=== PATIENT | female | born 1955 | race Caucasian/White ===

== ENCOUNTER 2018-03-31 18:02 | Inpatient (IN) | payer OTHER ==
[~2018-03-31] VITALS: Ht 162.5 cm; Wt 83.9 kg
--- NOTE | ~2018-03-31 | PR ---
[place], [place] PROGRESS NOTE NAME: HOWARD ENGLISH UNIT #: [id number] ROOM: 315 DOCTOR: ANTONIETA CHILDRESS MD BIRTHDATE: [birth year] DOS: 04/02/2018 CHIEF COMPLAINT: "Somebody killed my cat." SUMMARY OF THE VISIT: The patient was interviewed as she was engaging in conversation with one of the nurses. She looked extremely preoccupied and seemed to be responding to unforeseen others and not attending to the conversation at hand. She looked right passed me rather than looking me in the eye and it took multiple questions to even get her to state to me that she was upset because somebody killed her cat. When I tried to engage her into more reality and suggested that we attempt to find out if this is actually true, she did not speak to me further. Nurses report very consistent behavior today that she is much more fragmented and does seem to be having significant processing difficulty. MENTAL STATUS: She is alert and oriented to self at least, it is unclear if she is to place or time. Mood does seem to be very depressed and she is flat, blunted and constricted with significant processing difficulty and sparsity of thought. She does still seem to be grossly psychotic. PLAN: At this point, I will add Trintellix 10 mg in the morning to see if she is compliant with that. We will attempt to get her to take the Invega Sustenna injection of 234 mg IM, engage her in individual and mallory milieu activity, returning then to the least restrictive environment when psychiatrically stable. ANTONIETA CHILDRESS MD CM:PNTRANS [phone] ANTONIETA CHILDRESS MD 04/03/18 0110 interface
--- NOTE | ~2018-03-31 | CON ---
[place], [place] REPORT OF CONSULTATION NAME: HOWARD ENGLISH UNIT #: [id number] ROOM: 315 DOCTOR: GEOVANNA WHYTE DPM BIRTHDATE: [birth year] DOS: 04/03/2018 SUBJECTIVE: This 63-year-old female is seen today for care of extremely long toenails. It has been quite some time that she has had her nails cut. PAST MEDICAL HISTORY: Positive for hyperlipidemia, hypothyroidism, Hypothyroidism, vitamin D deficiency, schizophrenia. ALLERGIES: FLAGYL. CURRENT MEDICATIONS: Include Trintellix, Zocor, Risperdal, vitamin D, Synthroid, Geodon and Ativan. OBJECTIVE: Upon lower extremity physical examination, pedal pulses are palpable. Skin temperature is warm. CFT is less than 2 seconds to all digits. Upon neuro exam, sensation appears grossly intact and symmetrical. Muscle strength does appear full without any deficits. There is some contracture of lesser digits noted with prominent metatarsal heads. No pain noted to palpation on range of motion of pedal joints. Nails 1 through 5 bilaterally are extremely elongated, discolored, thick, brittle and dystrophic. The great toenails are mildly incurvated. No signs of infection. There was tenderness noted to palpation to the toenails. ASSESSMENT: Onychomycosis 1 through 5 bilaterally with pain. PLAN: Consult is performed. Manual debridement of mycotic nails 1 through 5 bilaterally in length and thickness to the level of the nail bed to reduce such infection. Follow up in 9 weeks as an outpatient for palliative foot care. Thank you for the opportunity to take part in care of this patient. GEOVANNA WHYTE DPM CM:CONSTR:REPORT OF CONSULTATION 1207 04/03/18 5 interface
--- NOTE | ~2018-03-31 | PR ---
[place], [place] PROGRESS NOTE NAME: HOWARD ENGLISH UNIT #: [id number] ROOM: 315 DOCTOR: ANNMARIE BROWN DO BIRTHDATE: [birth year] DOS: 04/04/2018 CHIEF COMPLAINT: "Feel a bit better." SUMMARY OF THE VISIT: The patient was interviewed in the dining garvey as she was sitting in a Chelita chair. Per nursing, rapid response was called overnight for seizure activity. The patient experienced [address] was negative. EKG was negative and troponin levels were negative. Nursing says based on past records, she has not had a seizure since she was 18 years old and that the Depakote medication that the patient was on, was used initially as a mood stabilizer. During patient's seizures, the patient was given valproate, a bolus of normal saline 500 mg and Ativan IV. The patient attempted to engage in conversation while speaking to her, but after saying I feel a bit better, patient was unable to vocalize normal communication and was mumbling words and making incomprehensible sounds. MENTAL STATUS EXAMINATION: The patient is alert and oriented to self, difficult to determine whether she is alert and oriented to time and place. Memory is difficult to test because of her nonverbal status at this time. PLAN: 1. Invega suspension 234 mg at bedtime. 2. We will continue to engage the patient in individual and mallory milieu activity, returning to the least restrictive environment when psychiatrically stable. Discharge will depend on medical and psychiatric status at that time. ADDENDUM Dr. Childress 04/13/18 10:48 am: Above note reviewed. Agree with observations, recommendations, and overall treatment plan. Annmarie Brown DO [place], [place] PROGRESS NOTE NAME: HOWARD ENGLISH UNIT #: [id number] ROOM: 315 DOCTOR: ANNMARIE BROWN DO BIRTHDATE: [birth year] ANTONIETA CHILDRESS MD CM:PNTRANS [phone] ANNMARIE BROWN 04/13/18 1055 MYRON NO.LLR
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
--- NOTE | ~2018-03-31 | PR ---
[place], [place] PROGRESS NOTE NAME: HOWARD ENGLISH UNIT #: [id number] ROOM: 315 DOCTOR: ANNMARIE BROWN DO BIRTHDATE: [birth year] DOS: 04/05/2018 CHIEF COMPLAINT: The patient is nonverbal at this time. SUMMARY OF VISIT: This is a 63-year-old female interviewed in the hallway in the Chelita chair. The patient is currently on continuous oxygen via nasal cannula since yesterday. I attempted to engage the patient into conversation with no responses. The patient makes grunting noises, but it does not acknowledge when speaking to her. She appears to be neglecting turning her head to the left, limited limb movement as the patient to raise her feet and the patient is unable to do so. I asked her to raise her arms up, the patient able to lift left arm up, but does not lift right. There is a slight tremor in the right side of her body noticeably in the right hand and right lower extremity. Per nursing staff, the patient was able to mumble some words yesterday, but they were very fragmented. PT and OT will continue to evaluate. MENTAL STATUS EXAMINATION: The patient is alert and minimally oriented to self. Difficult to determine whether the patient is oriented to time or place due to nonverbal state. Unable to test short term memory at this time due to being nonverbal. PLAN: 1. We will discontinue risperidone. 2. ____ 2 mg t.i.d. 3. Considering possible episodes of absence seizures versus catatonic schizophrenia versus psychiatric medications causing the patient's current decline in mental status and communication with the medicine team from the floor as well and at this time, we will determine whether the patient will be admitted to the floor or possibly discharge to another facility that has a Neurology Department unable to determine whether the patient is in this mental status due to neurological symptoms secondary to the seizures or possible ____ negative CT scan was showing after seizure episodes or whether this patient is having a catatonic episode. 4. We will continue to engage patient in individual and milieu activity when able and then have her return to the least restrictive environment when psychiatrically stable. ADDENDUM Dr. Childress 04/13/18 10:48 am: Above note reviewed. Agree with observations, recommendations, and overall treatment plan. Annmarie Brown DO [place], [place] PROGRESS NOTE NAME: HOWARD ENGLISH UNIT #: [id number] ROOM: 315 DOCTOR: ANNMARIE BROWN DO BIRTHDATE: [birth year] ANTONIETA CHILDRESS MD CM:PNTRANS [id number] ANNMARIE BROWN DO 04/13/18 1055 MYRON NO.FREDRICKR
--- NOTE | ~2018-03-31 | PR ---
[place], [place] PROGRESS NOTE NAME: HOWARD ENGLISH UNIT #: [id number] ROOM: 315 DOCTOR: ANTONIETA CHILDRESS MD BIRTHDATE: [birth year] DOS: 04/03/2018 CHIEF COMPLAINT: The patient did not speak, but continued to have eye darting throughout the room." SUMMARY OF THE VISIT: The patient was attempted to be interviewed as she was sitting next to a female peer. I knelt down next to her and on multiple occasions, attempted to engage her in conversation even asking simple yes and no responses. She did not make one single vocalization. Instead, she seemed very paranoid and her eyes started throughout the room as if she was responding to unforeseen others. She continues to be episodically compliant with care and meds. MENTAL STATUS: She is alert and oriented at least to self. Beyond that, it is difficult to tell. She does appear to be grossly psychotic and requires a great deal of assistance with her ADL maintenance. It is difficult to test memory because of her nonverbal state. PLAN: I will go ahead and recheck CBC with diff and a UA to make certain that the Monurol has been effective at treating the UTI. Otherwise, we will continue to try to get her to take the Risperdal, M-Tab and ultimately would like to be able to load her with Invega Sustenna or Risperdal Consta to improve compliance. We will continue at best to engage her in individual and mallory milieu activity with the plan to return her then to the least restrictive environment when psychiatrically stable. ANTONIETA CHILDRESS MD CM:PNTRANS [phone] ANTONIETA CHILDRESS MD 04/03/18 2323 interface
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
[2018-03-31] MEDS ORDERED: Synthroid,Levo75 MCG PO (18:22)
[2018-03-31] MEDS ORDERED: ZOCOR20 MG PO (18:24)
[2018-03-31] MEDS ORDERED: VITAMIN D10000 UNIT PO (18:26)
[2018-03-31] MEDS ORDERED: RISPERDAL2 M1 PO (18:27)
[2018-03-31] MEDS ORDERED: DEPAKOTE ER500 MG PO (18:28)
[2018-03-31] MEDS ORDERED: COGENTIN0.5 MG PO (18:36)
[2018-03-31 20:51] VITALS: BP 117/54
[2018-03-31 23:10] LABS: BILIRUBIN NEGATIVE (NEGATIVE); BLOOD 2+ (NEGATIVE); CLARITY CLEAR (CLEAR); COLOR YELLOW (YELLOW); GLUCOSE NEGATIVE (NEGATIVE); KETONE 1+ (NEGATIVE); LEUKO ESTERASE 1+ (NEGATIVE); NITRITE NEGATIVE (NEGATIVE); PH 5.5 (5.0-9.0); UROBILINOGEN 0.2 E.U./dl (0.2-1.0)
[2018-03-31 23:16] LABS: BACTERIA 1+
[2018-03-31 23:18] LABS: WBC 21-30 wbc/hpf (0-5)
[2018-03-31 23:20] LABS: RBC 21-30 rbc/hpf (0-2)
[2018-04-01 06:45] LABS: BASO # 0.1 10*3/uL (0.0-0.1); BASO % 0.6 % (0.0-1.0); EOS # 0.1 10*3/uL (0.0-0.4); EOS % 1.3 % (1.0-4.0); HEMATOCRIT 43.5 % (37.0-47.0); HEMOGLOBIN 14.1 g/dl (12.0-16.0); LYMPH # 1.3 10*3/uL (1.3-4.4); LYMPH % 14.2 % (27.0-41.0); MEAN CELL VOLUME 96.2 fl (81.0-99.0); MEAN CORPUSCULAR HGB 31.2 pg (27.0-31.0); MEAN CORPUSCULAR HGB CONC 32.4 g/dl (33.0-37.0); MEAN PLATELET VOLUME 10.7 fl (9.6-12.3); MONO # 0.8 10*3/uL (0.1-1.0); MONO % 8.9 % (3.0-9.0); NEUT # 6.8 10*3/uL (2.3-7.9); NEUT % 74.8 % (47.0-73.0); PLATELET COUNT AUTOMATED 197 10*3/uL (130-400); RED BLOOD COUNT 4.52 10*6/uL (4.10-5.10); RED CELL DISTRI WIDTH 13.6 % (0-14.5); WHITE BLOOD COUNT 9.1 10*3/uL (4.8-10.8)
[2018-04-01 07:13] LABS: ALBUMIN 3.7 gm/dl (3.1-4.5); CREATININE 1.6 mg/dL (0.55-1.02)
[2018-04-01 07:22] LABS: THYROID STIM HORMONE (HS) 2.5 uIU/ml (0.358-4.75); TOTAL PROTEIN 7.3 gm/dL (6.4-8.2)
[2018-04-01 08:04] VITALS: BP 118/69
[2018-04-01 08:18] LABS: VITAMIN D, 25-HYDROXY 42.4 ng/mL (30-100)
[2018-04-01 20:50] VITALS: BP 123/62
[2018-04-02 08:02] VITALS: BP 135/77
[2018-04-02 20:10] VITALS: BP 140/80
[2018-04-03 07:47] VITALS: BP 145/87
[2018-04-03 12:43] LABS: BASO % 0.3 % (0.0-1.0); EOS % 0.4 % (1.0-4.0); HEMATOCRIT 46.4 % (37.0-47.0); LYMPH # 1.5 10*3/uL (1.3-4.4); LYMPH % 14.8 % (27.0-41.0); MEAN CELL VOLUME 96.7 fl (81.0-99.0); MEAN CORPUSCULAR HGB 31.3 pg (27.0-31.0); MEAN CORPUSCULAR HGB CONC 32.3 g/dl (33.0-37.0); MEAN PLATELET VOLUME 11.4 fl (9.6-12.3); MONO # 0.7 10*3/uL (0.1-1.0); MONO % 7.3 % (3.0-9.0); NEUT # 7.7 10*3/uL (2.3-7.9); NEUT % 76.8 % (47.0-73.0); PLATELET COUNT AUTOMATED 206 10*3/uL (130-400); RED CELL DISTRI WIDTH 13.6 % (0-14.5)
[2018-04-03 19:55] VITALS: BP 127/78
[2018-04-03 20:20] VITALS: BP 156/84
[2018-04-03 21:00] LABS: BASO # 0.1 10*3/uL (0.0-0.1); BASO % 0.5 % (0.0-1.0); EOS # 0.1 10*3/uL (0.0-0.4); EOS % 0.8 % (1.0-4.0); HEMATOCRIT 44.3 % (37.0-47.0); HEMOGLOBIN 14.6 g/dl (12.0-16.0); LYMPH # 1.5 10*3/uL (1.3-4.4); LYMPH % 16.5 % (27.0-41.0); MEAN CELL VOLUME 95.3 fl (81.0-99.0); MEAN CORPUSCULAR HGB 31.4 pg (27.0-31.0); MEAN PLATELET VOLUME 11.5 fl (9.6-12.3); MONO # 0.9 10*3/uL (0.1-1.0); MONO % 9.4 % (3.0-9.0); NEUT # 6.7 10*3/uL (2.3-7.9); NEUT % 72.5 % (47.0-73.0); PLATELET COUNT AUTOMATED 201 10*3/uL (130-400); RED BLOOD COUNT 4.65 10*6/uL (4.10-5.10); RED CELL DISTRI WIDTH 13.8 % (0-14.5); WHITE BLOOD COUNT 9.2 10*3/uL (4.8-10.8)
[2018-04-03 21:15] LABS: ALBUMIN 3.8 gm/dl (3.1-4.5); ALKALINE PHOSPHATASE 87 U/L (45-117); BUN 23 mg/dl (7-24); CHLORIDE 113 mmol/L (98-107); CREATININE 1.76 mg/dL (0.55-1.02); PHOSPHOROUS 2.1 mg/dL (2.5-4.9); POTASSIUM 4.1 mmol/L (3.5-5.1); SGOT/AST 24 IU/L (3-35); SGPT/ALT 30 U/L (12-78); SODIUM 145 mmol/L (136-145)
[2018-04-03 21:17] LABS: TROPONIN I < 0.015 ng/ml (<0.045)
[2018-04-04 03:27] LABS: CREATININE 1.52 mg/dL (0.55-1.02); POTASSIUM 5.1 mmol/L (3.5-5.1)
[2018-04-04 08:10] VITALS: BP 135/72
[2018-04-04 20:00] VITALS: BP 144/68
[2018-04-05 08:30] VITALS: BP 148/75
[2018-04-05 15:25] VITALS: BP 130/67
[2018-04-05] MEDS ORDERED: BRIN10TA PO (15:37)
[2018-04-05] MEDS ORDERED: TRIHEXYPHENIDYL2 M3 PO (15:37)
[2018-04-05] MEDS ORDERED: DIVALPROEX SOD125 M1 PO (15:37)
== END 2018-04-05 23:04 | disposition short-term general hospital (02) | DRG 885 ==
LOC: 3N 18:02
PROVIDERS: Internal Medicine; Psychiatry & Neurology Psychiatry
PROC: 0HBRXZZ Excision of Toe Nail, External Approach (ICD-10-PCS; principal; 2018-04-03)
PROC: 0HBRXZZ Excision of Toe Nail, External Approach (ICD-10-PCS; 2018-04-03)
PROC: 0HBRXZZ Excision of Toe Nail, External Approach (ICD-10-PCS; 2018-04-03)
PROC: 0HBRXZZ Excision of Toe Nail, External Approach (ICD-10-PCS; 2018-04-03)
PROC: 0HBRXZZ Excision of Toe Nail, External Approach (ICD-10-PCS; 2018-04-03)
PROC: 0HBRXZZ Excision of Toe Nail, External Approach (ICD-10-PCS; 2018-04-03)
PROC: 0HBRXZZ Excision of Toe Nail, External Approach (ICD-10-PCS; 2018-04-03)
PROC: 0HBRXZZ Excision of Toe Nail, External Approach (ICD-10-PCS; 2018-04-03)
PROC: 0HBRXZZ Excision of Toe Nail, External Approach (ICD-10-PCS; 2018-04-03)
PROC: 0HBRXZZ Excision of Toe Nail, External Approach (ICD-10-PCS; 2018-04-03)
DX: F20.9 Schizophrenia, unspecified (principal); N17.0 Acute kidney failure with tubular necrosis; N39.0 Urinary tract infection, site not specified; R82.4 Acetonuria; E78.5 Hyperlipidemia, unspecified; E03.9 Hypothyroidism, unspecified; E55.9 Vitamin D deficiency, unspecified; B35.1 Tinea unguium; Z87.891 Personal history of nicotine dependence; R31.9 Hematuria, unspecified; E66.09 Other obesity due to excess calories; Z68.31 Body mass index [BMI] 31.0-31.9, adult

== ENCOUNTER 2019-10-11 17:26 | Inpatient (IN) | payer MEDICARE ==
[~2019-10-11] VITALS: Ht 154.9 cm; Wt 86.2 kg
[~2019-10-11 17:26] MED LIST: BRIN10TA PO; COGENTIN0.5 MG PO; DEPAKOTE ER500 MG PO; DIVALPROEX SOD125 M1 PO; RISPERDAL2 M1 PO; Synthroid,Levo75 MCG PO; TRIHEXYPHENIDYL2 M3 PO; VITAMIN D10000 UNIT PO; ZOCOR20 MG PO
[2019-10-11] MEDS ORDERED: RISPERIDONE2 M2 PO (17:37)
[2019-10-11] MEDS ORDERED: ATENOLOL25 MG PO (17:38)
[2019-10-11] MEDS ORDERED: PHENYTOIN50 M1 PO (17:40)
[2019-10-11] MEDS ORDERED: METOPROLOL SUCC25 M2 PO (17:41)
[2019-10-11] MEDS ORDERED: DIVALPROEX SOD250 MG PO (17:43)
[2019-10-12 02:00] VITALS: BP 144/70
[2019-10-12 02:31] VITALS: BP 144/70
--- NOTE | 2019-10-12 02:32 | NUR ---
HOWARD ENGLISH a 64 year old F admitted via stretcher from [facility] as a emergency 72 hr. hold admission. Arrived on unit at 0200. ALLERGIES: METRONIDAZOLE. Vital signs are: 98.1-64-18 144/70 SPO2 95%RA. The client signed the following forms with stated understanding: Authorization For The Release of Medical Information, Clothing List, Consent and Release Forms/Receipt of Rights, Acknowledgement of Advance Directive Information, Behavioral Health Consent Form, and Informed Consent of Medications. [facility] the [facility] A search was conducted and hazardous articles were removed. Client was oriented to the unit. JUAN ANTONIO PARR
--- NOTE | 2019-10-12 03:30 | NUR ---
HOSPITALIST CALLED, UPDATED ON NEW ADMISSION, MED REC COMPLETED AND BEING READY FOR REVIEW. STATED TO PLACE CONSULT UNDER HARSHAW. NO OTHER ORDERS RECEIVED.
--- NOTE | 2019-10-12 03:35 | NUR ---
ON UNIT TO SEE PATIENT AT THIS TIME.
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
--- NOTE | 2019-10-12 06:01 | NUR ---
PT OBSERVED ON Q 15 MIN CHECKS TO HAVE SLEPT APPROX 2 HOURS WITH NO AWAKENINGS OR SIGNS AND SYMPTOMS OF DISTRESS NOTED.
[2019-10-12 06:25] LABS: BASO % 0.4 % (0.0-1.0); EOS # 0.2 10*3/uL (0.0-0.4); EOS % 2.6 % (1.0-4.0); HEMATOCRIT 39.1 % (37.0-47.0); HEMOGLOBIN 12.7 g/dl (12.0-16.0); LYMPH # 2.3 10*3/uL (1.3-4.4); LYMPH % 27.6 % (27.0-41.0); MEAN CELL VOLUME 100.8 fl (81.0-99.0); MEAN CORPUSCULAR HGB 32.7 pg (27.0-31.0); MEAN CORPUSCULAR HGB CONC 32.5 g/dl (33.0-37.0); MEAN PLATELET VOLUME 10.4 fl (9.6-12.3); MONO # 0.6 10*3/uL (0.1-1.0); MONO % 7.5 % (3.0-9.0); NEUT # 5.2 10*3/uL (2.3-7.9); NEUT % 61.7 % (47.0-73.0); PLATELET COUNT AUTOMATED 212 10*3/uL (130-400); RED BLOOD COUNT 3.88 10*6/uL (4.10-5.10); RED CELL DISTRI WIDTH 14.2 % (0-14.5); WHITE BLOOD COUNT 8.5 10*3/uL (4.8-10.8)
[2019-10-12 06:55] LABS: ALBUMIN 3.2 gm/dl (3.1-4.5); CREATININE 1.28 mg/dL (0.55-1.02); PHENYTOIN (DILANTIN) 1.6 ug/ml (10-20); POTASSIUM 4.1 mmol/L (3.5-5.1)
[2019-10-12 07:00] LABS: THYROID STIM HORMONE (HS) 2.53 uIU/ml (0.358-4.75); TOTAL PROTEIN 6.3 gm/dL (6.4-8.2); VALPROIC ACID (DEPAKENE) 35.5 ug/ml (50-100)
--- NOTE | 2019-10-12 07:45 | NUR ---
Occupational therapy orders received and nursing screen received. Will follow up with patient. Thank you. Cielo Kirby, OTR/L
--- NOTE | 2019-10-12 08:00 | NUR ---
PHYSICAL THERAPY Screen received as well as orders for PT will follow thank you Sola Fernández PT
--- NOTE | 2019-10-12 08:15 | NUR ---
Treatment Plan meeting was held this a.m. with Dr. Parikh, RN, AT, [facility] and [employer] in attendance. Plan for discharge Tuesday/Tuesday. Pt. will return home at discharge.
[2019-10-12 08:41] VITALS: BP 131/78
--- NOTE | 2019-10-12 11:28 | NUR ---
Patient was actively hallucinating while meeting with this marine underwriter this AM. Pt would pause while speaking, nod her head, and then state what the voice was telling her. Pt referred to the voice as "the mannie olsen." Pt stated that the mannie olsen told her that it was okay to talk to this marine underwriter because this marine underwriter wants to help her and it is okay to get help. She also stated that the mannie wolffie told her that another female patient is actually a sister to her. When asked about her childhood and her parents, pt stated that the mannie olsen told her they were evil. Patient then stated that the other female pt was her mother that then was changed into her sister. Pt was tearful at times as she spoke. Pt also voiced concern that her will not allow her to return home. After meeting with pt, this marine underwriter attempted to reach both pt's and her daughter Eloisa. Will await return calls.
--- NOTE | 2019-10-12 11:44 | NUR ---
AM GROUP PT ATTENDED MORNING GROUP THERAPY BUT DID NOT PARTICIPATE. PT IS CONFUSED AND TEARFUL. PT MISTAKING ME FOR "MARIBELL" AND A PEER HER GRANDSON.
--- NOTE | 2019-10-12 14:00 | NUR ---
RECIEVED CALL THIS AFTERNOON FROM PT'S DAUGHTER ROZ PT GAVE PERMISSION FOR THIS NURSE TO UPDATE DAUGHTER AND DISCLOSE INFORMATION REGARDING TREATMENT. UPDATE GIVEN TO ROZ, QUESTIONS ANSWERED. REVIEWED VISITING HOURS. DAUGHTER'S PHONE NUMBER PLACED ON CHART.
--- NOTE | 2019-10-12 15:38 | NUR ---
PM GROUP PT ATTENDED AND PARTICIPATED IN AFTERNOON GROUP THERAPY. PT DID EXHIBIT SOME PARANOIA DURING GROUP WORRYING OVER PEERS. PT WAS EASILY REDIRECTABLE
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
[2019-10-12 19:56] VITALS: BP 116/70
--- NOTE | 2019-10-12 22:45 | NUR ---
P-PARANOID, DENOMINATIONAL PREOCCUPATION I-REDIRECTION WITH 1:1 THERAPEUTIC INTERVENTIONS AND PRESENT REALITY. EDUCATE AND ENCOURAGE MEDICATION COMPLIANCE R-PATIENT MEDICATION COMPLIANT. PATIENT ABLE TO MAKE NEEDS KNOWN THROUGHOUT SHIFT. PATIENT AMBULATING ON UNIT WITH STEADY GAIT. PATIENT PROVIDED NOURISHMENT AND FLUIDS. PATIENT STATING TO THIS NURSE " I SHOULD KNOW THAT YOU WOON'T GIVE ME ANYTHING TO HURT ME BUT JUST TO BE SURE CAN YOU EXPLAIN THESE MEDICATIONS TO ME". THIS NURSE EDUCATED PATIENT ABOUT MEDICATIONS AT HS. PATIENT STATED TO THIS NURSE "I SAID MY PRAYERS TONIGHT. DID YOU HEAR ME SAY MY PRAYERS? I'M GOING TO SAY MY PRAYERS JUST IN CASE I FORGOT EARLIER". P-CONTINUE TO ENCOURAGE MEDICATION COMPLIANCE, CONTINUE TO PRESENT REALITY, ENCOURAGE GROUP THERAPY WHILE AWAKE
--- NOTE | 2019-10-13 05:52 | NUR ---
PATIENT SLEPT 7 HOURS OF UNINTERRUPTED SLEEP THROUGHOUT SHIFT. Q 15 MINUTE CHECKS MAINTAINED. 24 HR chart check completed.
--- NOTE | 2019-10-13 06:53 | NUR ---
URINE SPECIMEN COLLECTED VIA CLEAN CATCH. URINE CLOUDY YELLOW. URINE OUTPUT OF 300ML. PATIENT CONTINENT OF BLADDER PRIOR TO OBTAINING SPECIMENT. PATIENT WITH NO COMPLIANT OF DYSRURIA
[2019-10-13 07:24] LABS: BILIRUBIN NEGATIVE (NEGATIVE); BLOOD NEGATIVE (NEGATIVE); CLARITY CLEAR (CLEAR); COLOR YELLOW (YELLOW); GLUCOSE NEGATIVE (NEGATIVE); KETONE NEGATIVE (NEGATIVE); LEUKO ESTERASE NEGATIVE (NEGATIVE); NITRITE NEGATIVE (NEGATIVE); SPECIFIC GRAVITY <= 1.005 (1.005-1.030); UROBILINOGEN 0.2 E.U./dl (0.2-1.0)
[2019-10-13 07:42] LABS: BACTERIA 1+
[2019-10-13 07:58] VITALS: BP 120/62
--- NOTE | 2019-10-13 10:00 | NUR ---
DR. COLMENARES ON UNIT TO ASSESS PATIENT.
--- NOTE | 2019-10-13 12:06 | NUR ---
AM GROUP/EXERCISE/MUSIC/BINGO PT ATTENDED AND PARTICIPATED IN ALL GROUP ACTIVITY. PT PLEASANT AND ON TASK. PT BECAME TEARFUL A FEW TIMES SPEAKING NONSENSICAL, BUT EASILY REDIRECTED. PT DID NOT EXPRESS ANY PARANOIA OR HALLUICINATIONS AT THIS TIME. PT WILL CONTINUE TO ATTEND AND PARTICIPATE IN FUTURE GROUP SESSIONS TO BEST OF ABILITY.
--- NOTE | 2019-10-13 15:50 | NUR ---
PM GROUP/BEADING/MUSIC PT ATTENDED AND PARTICIPATED IN ALL GROUP ACTIVITY'S. PT PLEASANT AND ON TASK WITH NO PARANOIA OR HALLUCINATIONS EXPRESSED AT THIS TIME. PT WILL CONTINUE TO ATTEND AND PARTICIPATE IN FUTURE GROUP SESSIONS.
--- NOTE | 2019-10-13 17:51 | NUR ---
PATIENT IS ALERT TO PERSON, PLACE, TIME AND SITUATION. MOOD IS STABLE. DENIES ANY HALLUCINATIONS, DELUSIONS, HI/SI OR PAIN. INDEPENDENT WITH ACTIVITIES OF DAILY LIVING, CONTINENT OF BOWEL AND BLADDER. SET UP FOR MEALS, INTAKES ARE GOOD WITH ADEQUATE FLUIDS. MEDICATION COMPLIANT WITH EDUCATION PROVIDED. Q 15 MINUTE SAFETY CHECKS. INTERACTIVE WITH STAFF AND OTHER PATIENTS. ATTENDED GROUP SESSSION. CONTINUE TO MONITOR FOR INCREASED CONFUSION, HALLUCINATIONS AND MEDICATION COMPLAINTS. PROVIDE ONE ON ONE AND REDIRECT NEEDED.
[2019-10-13 19:52] VITALS: BP 138/50
--- NOTE | 2019-10-13 21:00 | NUR ---
PT SOMEWHAT BIZARRE IN SPEECH. STATING HER ARMS WERE HURTING AFTER THE ECT SHE RECEIVED EARLIER. PT REORIENTED, PRESENTED WITH REALITY, TYLENOL ADMINISTERED PER PRN ORDER. PT STATES "OH OKAY". PT IS PLEASANT, CALM, COOPERATIVE. RECEPTIVE TO REDIRECTION. COMPLIANT WITH MEDICATIONS.
--- NOTE | 2019-10-14 06:34 | NUR ---
PT SLEPT 8 HOURS LAST HS.
[2019-10-14 07:28] VITALS: BP 124/69
--- NOTE | 2019-10-14 11:59 | NUR ---
AM GROUP/EXERCISE/MUSIC/GAMES PT IN ATTENDANCE AND PARTICIPATING. PT BEGAN PLAYING MONOPLY BUT DROPEED OUT STATING "THIS IS TOO MUCH WORK FOR MY BRAIN. IM JUST GOING TO WATCH" PT OBSERVED AND JOINED PEER DISCUSSION. PT WILL CONTINUEOT ATTEND AND PARTICIPATE IN FUTURE GROUP SESSIONS TO BEST OF ABILITY.
--- NOTE | 2019-10-14 15:17 | NUR ---
P: DEPRESSED MOOD AND TEARFUL AT TIMES. INTRUSIVE WITH OTHER PATIENTS. I: ONE ON ONE FOR EMOTIONAL SUPPORT. ENCOURAGE GROUP PARTICIPATION AND SOCIALIZING WITH STAFF AND OTHER PRATIENTS; REDIRECT NEEDED. R: EFFECTIVE. PATIENT IS ALERT AND ORIENT TO PERSON, PLACE, TIME AND SITUATION; ABLE TO VOICE NEEDS. MODO IS DEPRESSED AND TEARFUL. DENIES ANY HALLUCINATIONS, DELUSIONS, HI/SI OR PAIN. Q 15 MINUTE SAFETY CHECKS. MEDICATION COMPLAINT WITH EDUCAITON PROVIDED. INDEPENDNENT WITH ACTIVITIES OF DAILY LIVING, CONTIINENT OF BOWEL AND BLADDER. SET UP FOR MEALS, INTAKES ARE GOOD WITH ADEQUATE FLUIDS. AMBULATES WITH STEADY GAIT. P: CONTINUE TO MONITOR MOOD, CONFUSION, HALLUCINATION/DELUSION, CRYING EPISODE, MEDICAITON COMPLIANCE. PROVIDE ONE ON ONE FOR EMOTIONAL SUPPORT AND REDIRECTION NEEDED.
--- NOTE | 2019-10-14 15:39 | NUR ---
Shift chart check completed.
[2019-10-14 19:58] VITALS: BP 124/51
--- NOTE | 2019-10-15 05:49 | NUR ---
PT SLEPT 9 HOURS
[2019-10-15 07:51] VITALS: BP 129/69
--- NOTE | 2019-10-15 08:15 | NUR ---
Treatment Plan meeting was held this a.m. with JADE Villa RN, AT, MILEY-S and Power Station Operator in attendance. Plan for discharge at the end of the week. Pt. to return home at this point with family.
--- NOTE | 2019-10-15 09:48 | NUR ---
DR. COLMENARES ON UNIT TO ASSESS PATIENT.
--- NOTE | 2019-10-15 11:38 | NUR ---
AM GROUP/EXERCISE PT ATTENDED MORNING GROUP THERAPY AND PARTICIPATED IN ALL ACTIVITIES. PT HAD FLIGHT OF IDEAS AND WAS SPEAKING OF PREVIOUS MARRIAGES ONE MINUTE AND CAODAISM DOCTRINE THEN HER SISTER IN LAW. PT SEEMED TO BE SPEAKING TO AN UNSEEN OTHER ONCE AND WAS STARING OFF INTO SPACE WHEN NOT ENGAGED.
--- NOTE | 2019-10-15 13:20 | NUR ---
Occupational THerapy referral received and screen completed. Patient is observed during independent ambulation w/o a device no 3N unit. Staff report and patient confirm that she is able to perform self care at indep level w/ supervision for bathing.At this time no further OT indicated. However d/t delusions and dustin, recommend 24 hr supervision and assist upon d/c. Thank you. Quinn Ortega OTR/l
--- NOTE | 2019-10-15 14:37 | NUR ---
PHYSICAL THERAPY Pt observed on U amb independently no AD steady gait, spoke with staff pt has been functional througout facility amb without any issues or difficulties. Screen only at this time no skilled intervention needed, will discontinue PT order, thank you. Sola Fernández PT
--- NOTE | 2019-10-15 15:01 | NUR ---
PATIENT IS ALERT TO PERSON, PLACE, TIME AND SITUATION. MOOD IS STABLE, IMPROVEMENT NOTED. DENIES ANY HALLUCINATIONS, DELUSIONS, HI/SI OR PAIN. INDEPENDENT WITH ACTIVITIES OF DAILY LIVING, CONTINENT OF BOWEL AND BLADDER. SET UP FOR MEALS, INTAKES ARE GOOD WITH ADEQUATE FLUIDS. MEDICATION COMPLIANT WITH EDUCATION PROVIDED. Q 15 MINUTE SAFETY CHECKS. INTERACTIVE WITH STAFF AND OTHER PATIENTS. ATTENDED GROUP SESSSION. CONTINUE TO MONITOR FOR INCREASED CONFUSION, HALLUCINATIONS AND MEDICATION COMPLAINTS. PROVIDE ONE ON ONE AND REDIRECT NEEDED.
--- NOTE | 2019-10-15 15:31 | NUR ---
Shift chart check completed.
--- NOTE | 2019-10-15 15:36 | NUR ---
PM GROUP/MOVIE AND MANICURES PT ATTENDED AFTERNOON GROUP THERAPY AND PARTICIPATED BY GETTING A MANICURE. PT WAS HYPERVERBAL AND TALKED THE ENTIRE TIME. MOST OF WHAT PT SAID DID NOT MAKE SENSE IN THE CONTEXT OF THE CONVERSATION. PT DID NOT EXPRESS ANY PARANOIA OR HALLUCINATIONS WHILE IN GROUP
[2019-10-15 19:49] VITALS: BP 125/70
--- NOTE | 2019-10-15 21:27 | NUR ---
P-TEARFUL I-REDIRECTION WITH 1:1 THERAPEUTIC INTERVENTIONS AND PRESENT REALITY. EDUCATE AND ENCOURAGE MEDICATION COMPLIANCE R-PATIENT MEDICATION COMPLIANT. PATIENT ABLE TO MAKE NEEDS KNOWN THROUGHOUT SHIFT. PATIENT AMBULATING ON UNIT WITH STEADY GAIT. PATIENT PROVIDED NOURISHMENT AND FLUIDS. PATIENT STATING TO THIS NURSE " I'M JUST SO UPSET. I CAN'T DO ANYTHING TO HELP BRANDON. I HAVE A GRANDSON THAT IS AUTISTIC AND PEOPLE CALL HIM RETARDED. I JUST WANT TO HELP HIM. I MISS MY FAMILY AND I WANT TO GO HOME". PATIENT PROVIDED 1:1 THERAPEUTIC INTERVENTIONS TO HELP PATIENT WITH EPISODES OF TEARFULNESS. P-CONTINUE TO ENCOURAGE MEDICATION COMPLIANCE, CONTINUE TO PRESENT REALITY, ENCOURAGE GROUP THERAPY WHILE AWAKE
--- NOTE | 2019-10-16 05:49 | NUR ---
PATIENT SLEPT 8 HOURS OF INTERRUPTED SLEEP THROUGHOUT SHIFT. Q 15 MINUTE CHECKS MAINTAINED. 24 HR chart check completed.
[2019-10-16 07:44] VITALS: BP 119/61
--- NOTE | 2019-10-16 08:15 | NUR ---
Treatment Plan meeting was held with Daisy HANSEN, RN, AT, MILEY-S and Marketing Outreach Coordinator in attendance. Plan for discharge at the end of the week. Pt. will return home with family.
--- NOTE | 2019-10-16 11:38 | NUR ---
AM GROUP/WATERCOLORS PT ATTENDED AND PARTICIPATED IN ALL GROUP ACTIVITIES. PT WAS FOCUSED AND ON TASK. PT EXPRESSED NO HALLUCINATIONS WHILE IN GROUP
--- NOTE | 2019-10-16 17:53 | NUR ---
PT HAS BEEN PLEASANT, COOPERATIVE THIS SHIFT. PT DISPLAYED NO TEARFUL EPISODES. PT HAS BEEN INTERACTING WITH PEER AND STAFF APPROPRIATELY, NO BIZARRE BEHAVIORS NOTED DURING SHIFT.
[2019-10-16 20:06] VITALS: BP 124/69
--- NOTE | 2019-10-16 22:25 | NUR ---
INTERACTIVE WITH PEERS AND STAFF. TALKED WITH HER DAUGHTER ON PHONE ABOUT COOKING JAYSON DINNER. TELLS ME SHE BOUGHT THE FOOD AND HER DAUGHTER WILL COOK IT. STATES FEELING MUCH BETTER THAN WHEN SHE ARRIVED. DISCUSSED COPING SKILLS FOR WHEN SHE GETS ANXIOUS. DISCUSSED QUIET TIME, WALKS, READING. CLIENT AGREEABLE WITH ALL ABOVE. MEDICATION EDUCATION PRIOR TO GIVING. CONTINUE TO MONITOR FOR SAFETY AND CHANGES IN MOOD/BEHAVIOR
--- NOTE | 2019-10-17 02:24 | NUR ---
24 HR chart check completed.
--- NOTE | 2019-10-17 06:09 | NUR ---
SLEPT WELL FROM 2200PM THRU 6AM THIS MORNING. MOVED SELF AROUND IN BED. CURRENTLY GETTING DRESSED FOR DAY. HAPPY AND PLEASENT. INTERACTIVE WITH STAFF. CONTINUE TO MONITOR Q 15 MINUTES AND PRN
[2019-10-17 07:34] VITALS: BP 137/75
--- NOTE | 2019-10-17 08:41 | NUR ---
DR. COLMENARES ON UNIT TO ASSESS PT, UPDATE PROVIDED.
--- NOTE | 2019-10-17 10:25 | NUR ---
NO ADVERSE MOODS OR BEHAVIORS NOTED AT THIS TIME. PT ALERT TO PERSON, PLACE, TIME AND SITUATION. PT INTERACTIVE WITH STAFF AND PEERS. PT PLEASANT AND COOPERATIVE. NO HALLUCINATIONS OR DELUSIONS NOTED.PT DENIES ANY SUICIDAL THOUGHTS. PT STATES "I FEEL HOPEFUL TODAY, I'M NOT SAD OR DEPRESSED." PT AMBULATORY THROUGHTOUT UNIT, GAIT STEADY. PT CONTINENT OF BOWEL AND BLADDER. PLAN IS TO MONITOR PT BEHAVIORS ON Q15 MIN SAFETY CHECKS, ENCOURAGE MED COMPLIANCE AND PROVIDE MED EDUCATION, PROVIDE EMOTIONAL SUPPORT AND 1:1 FOR PT TO VOICE FEELINGS.
[2019-10-17 19:27] VITALS: BP 135/67
--- NOTE | 2019-10-17 20:28 | NUR ---
PLEASANT AND INTERACTIVE WITH PEERS AND STAFF. HAD A GOOD DAY, STATES ATE ALOT AND IS REALLY FULL. REVIEWED ALL MEDICATIONS SHE IS CURRENTLY SUBSCRIBED. ALL QUESTIONS ANSWERED. MEDICATION COMPLIANT. READY FOR BED. WILL MONITOR FOR CHANGES IN MOOD/BEHAVIOR
--- NOTE | 2019-10-18 02:25 | NUR ---
24 HR chart check completed.
--- NOTE | 2019-10-18 05:57 | NUR ---
UP AND DRESSED READY FOR THE DAY. STATES SHE SLEPT WELL LAST NIGHT. SLEPT PAST 2200PM. WILL MAINTAIN SAFETY CHECKS Q 15MIN AND PRN
[2019-10-18 07:26] VITALS: BP 134/84
--- NOTE | 2019-10-18 08:15 | NUR ---
Treatment Plan meeting was held this a.m. with JADE Villa, RN, AT, MILEY-S and Logistics Manager in attendance. Plan for discharge Tuesday with return home.
--- NOTE | 2019-10-18 08:34 | NUR ---
Patient resting quietly with no c/o discomfort. Respirations easy and regular. Vital signs stable. No overt distress. JUAN ANTONIO PARR
--- NOTE | 2019-10-18 11:38 | NUR ---
AM GROUP PT ATTENDED MORNING GROUP THERAPY AND PARTICIPATED BY COLORING A CAT WITH COLORED PENCIL. PT WAS FOCUSED AND ON TASK. PT EXPRESSED NO PARANOID IDEATIONS OR DELUSIONS WHILE IN GROUP
--- NOTE | 2019-10-18 12:45 | NUR ---
PT IS CALM, COOPERATIVE, COMPLIANT WITH MEDICATIONS. PT STATES SHE IS EXCITED TO GO HOME TOMORROW. PT ABLE TO IDENTIFY MEDICATIONS WITHOUT DIFFICULTY. Q15 MIN MONITORING PER POLICY FOR SAFETY.
--- NOTE | 2019-10-18 15:24 | NUR ---
Spoke with Pt. Marcio Via telephone. Advised of plans to discharge patient tommorow. Arranged for supervisor type bar and segment time 11:00 a.m.
--- NOTE | 2019-10-18 15:39 | NUR ---
PM GROUP/PAINTING PT ATTENDED AFTERNOON GROUP AND PARTICIPATED BY PAINTING A WATERCOLOR. PT WAS FOCUSED AND ON TASK. PT EXPRESSED NO PARANOID DELUSIONS OR HALLUCINATIONS WHILE IN GROUP
[2019-10-18 19:30] VITALS: BP 123/52
--- NOTE | 2019-10-18 23:18 | NUR ---
24 HR chart check completed.
--- NOTE | 2019-10-18 23:23 | NUR ---
MOOD IS STABLE. PLEASANT INTERACTIONS WITH STAFF & PEERS. ALERT & ORIENTED X 4. SAT IN THE DINING ROOM WATCHING TV THIS EVENING. COMPLIANT WITH MEDS. STATED POSITIVE PLANS FOR DISCHARGE TOMORROW.
--- NOTE | 2019-10-19 06:13 | NUR ---
SLEPT WELL ALL SHIFT. Q15 MIN AND PRN SAFETY CHECKS CONTINE
[2019-10-19 07:30] VITALS: BP 130/67
--- NOTE | 2019-10-19 08:15 | NUR ---
Treatment Plan meeting was held with Maryjane HANSEN, RN, AT, ARMATURE WINDER HELPER REPAIR-S and Executive Vice President Business Development in attendance. Plan for discharge today with patient returning Home. Follow up appointments arranged.
--- NOTE | 2019-10-19 08:59 | NUR ---
SPOKE WITH DR. MELTON ADVISED OF PT DISCHARGE THIS MORNING.
--- NOTE | 2019-10-19 09:07 | NUR ---
DR. NEGRO ON UNIT TO ASSESS PT, UPDATE PROVIDED.
[2019-10-19] MEDS ORDERED: DIVALPROEX SOD500 MG PO (09:57)
[2019-10-19] MEDS ORDERED: PALIPERIDONE ER6 MG PO (09:57)
[2019-10-19] MEDS ORDERED: MIRTAZAPINE15 M2 PO (09:57)
--- NOTE | 2019-10-19 10:09 | NUR ---
PT ALERT TO PERSON, PLACE, TIME AND SITUATION. PT MED COMPLIANT WITHOUT DIFFICULTY, MED EDUCATION PROVIDED. PT CALM, MOOD IS STABLE. PT DENIES ANY SUICIDAL THOUGHTS. NO HALLUCINATIONS OR DELUSIONS NOTED. SKIN INTACT NO WOUNDS OR OPEN AREAS NOTED. PT PLEASANT AND COOPERATIVE, INTERACTIVE WITH STAFF AND PEERS. PT AMBULATORY THROUGHOUT UNIT, GAIT STEADY. PT CONTINENT OF BOWEL AND BLADDER. PLAN IS TO MONITOR PT BEHAVIORS ON Q15 MIN SAFETY CEHECKS, ENCOURAGE MED COMPLIANCE AND PROVIDE MED EDUCATION, PREPARE PT FOR DISCHARGE TODAY. DISCHARGE INFORMATION REVIEWED WITH PT.
--- NOTE | 2019-10-19 10:33 | NUR ---
PT DISCHARGED TO HOME VIA PRIVATE CAR. PT ESCORTED OFF UNIT VIA WHEELCHAIR BY STAFF. PT BELONGINGS AND DISCHARGE PACKET SENT WITH PT.
--- NOTE | 2019-10-19 10:50 | NUR ---
Met with pt this AM prior to her discharge. Pt reports that she is feeling so much better and ready to go home. When asked what the first thing that she will do when she gets home, pt stated, "Hug my , daughter, and cats." Discussed the importance of medication compliance. Patient voiced understanding. Pt was pleasant and appropriate in conversation.
--- NOTE | 2019-10-19 10:53 | NUR ---
Patient discharged home today with her . Follow-up was scheduled with [facility], [facility], on 10/22/19 for assessment with Bonita Moreland and on 10/25/19 with Pleon Downing NP for psychiatric visit. An appointment with pt's PCP Dr Vickie Whyte was also scheduled on 11/15/19 at 12:30. While at [facility], pt improved. She no longer was voicing delusions or experiencing auditory hallucinations. Pt was pleasant and cooperative. She did participate in programming.
== END 2019-10-19 10:36 | disposition home or self-care (01) | DRG 885 ==
LOC: 3N 17:26
PROVIDERS: ADMIT Psychiatry & Neurology Psychiatry
DX: F25.9 Schizoaffective disorder, unspecified (principal); E87.0 Hyperosmolality and hypernatremia; E78.5 Hyperlipidemia, unspecified; E03.9 Hypothyroidism, unspecified; E55.9 Vitamin D deficiency, unspecified; N18.3 Chronic kidney disease, stage 3 (moderate); G40.909 Epilepsy, unspecified, not intractable, without status epilepticus; Z87.891 Personal history of nicotine dependence; Z88.8 Allergy status to other drugs, medicaments and biological substances; Z79.899 Other long term (current) drug therapy

== ENCOUNTER 2020-03-19 12:17 | Emergency (ER) | payer MEDICARE ==
[~2020-03-19 12:17] MED LIST changes: +ATENOLOL25 MG PO; +DIVALPROEX SOD250 MG PO; +DIVALPROEX SOD500 MG PO; +METOPROLOL SUCC25 M2 PO; +MIRTAZAPINE15 M2 PO; +PALIPERIDONE ER6 MG PO; +PHENYTOIN50 M1 PO; +RISPERIDONE2 M2 PO
[2020-03-19 13:06] LABS: BASO % 0.4 % (0.0-1.0); EOS # 0.1 10*3/uL (0.0-0.4); EOS % 0.9 % (1.0-4.0); LYMPH # 1.8 10*3/uL (1.3-4.4); LYMPH % 16.7 % (27.0-41.0); MEAN CELL VOLUME 97.4 fl (81.0-99.0); MEAN CORPUSCULAR HGB 33.5 pg (27.0-31.0); MEAN CORPUSCULAR HGB CONC 34.4 g/dl (33.0-37.0); MEAN PLATELET VOLUME 10.5 fl (9.6-12.3); MONO % 9.3 % (3.0-9.0); NEUT # 7.7 10*3/uL (2.3-7.9); NEUT % 72.2 % (47.0-73.0); PLATELET COUNT AUTOMATED 227 10*3/uL (130-400); RED BLOOD COUNT 4.21 10*6/uL (4.10-5.10); RED CELL DISTRI WIDTH 14.2 % (0-14.5); WHITE BLOOD COUNT 10.7 10*3/uL (4.8-10.8)
[2020-03-19 13:16] LABS: ACT PARTIAL THROMBO TIME 28.8 SECONDS (20.0-32.1)
[2020-03-19 13:25] LABS: ALBUMIN 3.5 gm/dl (3.1-4.5); ALKALINE PHOSPHATASE 97 U/L (45-117); BUN 16 mg/dl (7-24); CHLORIDE 105 mmol/L (98-107); CREATININE 1.29 mg/dL (0.55-1.02); LIPASE 158 U/L (73-393); PHENYTOIN (DILANTIN) 1.1 ug/ml (10-20); SGOT/AST 131 IU/L (3-35); SGPT/ALT 72 U/L (12-78); SODIUM 138 mmol/L (136-145); VALPROIC ACID (DEPAKENE) 50.6 ug/ml (50-100)
[2020-03-19 13:26] LABS: TROPONIN I < 0.015 ng/ml (<0.045)
[2020-03-19 15:29] LABS: BILIRUBIN NEGATIVE (NEGATIVE); BLOOD NEGATIVE (NEGATIVE); CLARITY CLEAR (CLEAR); COLOR YELLOW (YELLOW); GLUCOSE NEGATIVE (NEGATIVE); KETONE NEGATIVE (NEGATIVE); SPECIFIC GRAVITY 1.005 (1.005-1.030); UROBILINOGEN 0.2 E.U./dl (0.2-1.0)
[2020-03-19 15:30] LABS: NITRITE NEGATIVE (NEGATIVE)
[2020-03-19 15:33] LABS: WBC 0-2 wbc/hpf (0-5)
[2020-03-19 15:34] LABS: LEUKO ESTERASE NEGATIVE (NEGATIVE)
[2020-03-19] MEDS ORDERED: DEPAKOTE250 MG PO (17:23)
[2020-03-19] MEDS ORDERED: ATENOLOL25 MG PO (17:24)
[2020-03-19] MEDS ORDERED: FLONASE ALLERG9.9 ML NAS (17:26)
== END 2020-03-19 18:05 | disposition home health service (06) ==
LOC: ED 12:17
PROVIDERS: Emergency Medicine
DX: Z03.818 Encounter for observation for suspected exposure to other biological agents ruled out (principal); F23 Brief psychotic disorder; Z87.891 Personal history of nicotine dependence; Z90.89 Acquired absence of other organs; Z79.899 Other long term (current) drug therapy; Z88.1 Allergy status to other antibiotic agents

== ENCOUNTER 2020-03-19 17:17 | Inpatient (IN) | payer MEDICARE ==
[~2020-03-19] VITALS: Ht 147.3 cm; Wt 88.5 kg
[2020-03-19] MEDS ORDERED: DEPAKOTE250 MG PO (17:23)
[2020-03-19] MEDS ORDERED: ATENOLOL25 MG PO (17:24)
[2020-03-19] MEDS ORDERED: FLONASE ALLERG9.9 ML NAS (17:26)
--- NOTE | 2020-03-19 17:35 | NUR ---
RECIEVED CALL FROM SUZANNE IN E.D. STATES RAPID COVID IS NEGATIVE.
--- NOTE | 2020-03-19 17:50 | NUR ---
HOWARD ENGLISH a 65 year old F admitted via wheel chair from the EMERGENCY ROOM as a voluntary admission. Arrived on unit at 1750. ALLERGIES: FLAGYL. Vital signs are: [id number] 119/74. The client signed the following forms with stated understanding: Authorization For The Release of Medical Information, Clothing List, Consent to Voluntary Admission and Hospitalization, Consent and Release Forms/Receipt of Rights, Acknowledgement of Advance Directive Information, Behavioral Health Consent Form, and Informed Consent of Medications. Admitted under the services of Dr. MONROE CHARLESANTONIETA. A search was conducted and hazardous articles were removed. Client was oriented to the unit. RUBÉN ROSE
[2020-03-19 17:56] VITALS: BP 119/74
--- NOTE | 2020-03-19 18:17 | NUR ---
NOTIFIED OF CONSULT FOR MEDICAL MANAGEMENT.
[2020-03-19 19:58] VITALS: BP 119/74
--- NOTE | 2020-03-19 23:15 | NUR ---
Patient alert and oriented to person,place and approx.to time. Mood is calm,cooperative,but very slow in response in her actions as well as her speech. Denies any hallucinations. No overt s/s any responding to internal stimuli noted at this time. Patient compliant with HS medications without any difficulty. Attempted to provide 1:1 for emotional support but patient refused. Redirected when needed. Plan to continue medication compliance. Also will continue to provide emotional support and continue to redirect when needed/appropriate. Will also continue to monitor moods/behaviors. Q 15 minute safety checks continued and maintained. See [facility] flowsheet for further documentation.
--- NOTE | 2020-03-20 00:23 | NUR ---
24 HR chart check completed.
--- NOTE | 2020-03-20 06:32 | NUR ---
Patient slept approx. 6.5 hours throughout shift. Q 15 minute safety checks continued and maintained.
[2020-03-20 07:36] LABS: THYROID STIM HORMONE (HS) 2.47 uIU/ml (0.358-4.75)
[2020-03-20 07:49] LABS: VITAMIN D, 25-HYDROXY 29.5 ng/mL (30-100)
[2020-03-20 07:59] VITALS: BP 115/61
--- NOTE | 2020-03-20 08:04 | NUR ---
PHYSICAL THERAPY Screen received pt admitted with hx of schizophrenia and delusions. Please consult Physical Therapy if pt has a decline in functional status below baseline, thank you. Sola Fernández PT
--- NOTE | 2020-03-20 08:11 | NUR ---
Nursing screen received and chart reviewed. Patient admitted to the [facility] with a history of schizophrenia and hallucinations. Please send OT orders if patient has a decline in ADLs, transfers, and mobility. Thank you. Cielo Kirby, OTR/L
--- NOTE | 2020-03-20 08:15 | NUR ---
Treatment Plan meeting was held this a.m. via telephone with Dr. Parikh RN, CURATOR ZOOLOGICAL MUSEUM-S and Auto Service Instructor. Plan for discharge Next week. Pt. came to [facility] from Home. Pig Handler to assess Home Needs with Assessment and Will Follow.
--- NOTE | 2020-03-20 08:57 | NUR ---
rounded and updated on pt progress via telemedicine. Medication orders updated per .
--- NOTE | 2020-03-20 11:42 | NUR ---
Attempted to reach pt's Marcio and pt's daughter Eloisa Thorne by phone. Left messages. Await return calls in order to verify pt self-report. Pt is stating that her recently left her and that she doesn't know where she will go when she is discharged.
--- NOTE | 2020-03-20 11:45 | NUR ---
While meeting with pt today, pt stated, "I'm not doing good." When pt was asked to further explain, pt stated, "I'm in hell. I went to hell." It's like a bad dream but it's true. Do you see all the evil people?" Offered support to pt and reoriented pt to [facility]. Pt then stated, "So I'm in the hospital?" When this was verifed again to the pt, pt smiled and stated, "Okay then." Pt continued speaking to this gag writer without mentioning this further.
--- NOTE | 2020-03-20 16:57 | NUR ---
P- Delusional thought processes, paranoia, slow processing, depressed mood I- Orientation, mood and behaviors assessed. Assessed pt for SI/HI, hallucinations, paranoia and/or delusions. Medications administered as per physician's orders. Assistance with ADL care provided as needed. Encouraged pt to attend and participate in mallory milieu groups and activities. R- Pt is alert with varying levels of orientation throughout the day. Confused at times with memory gaps noted. Resps easy and even on room air. Mood appears depressed, pt states she is "sad because my left me and now I don't know where I'm going to go". Affect flat. Speech is soft and slow but coherent, pt is able to make needs known without difficulty. Slow processing noted. This morning pt stated to this RN "I think I'm in the hospital but I don't know how I ended up here". Reviewed with pt events leading up to admission. Pt was able to recall having paranoid delusions regarding Presdient Trump being out to get here. Pt shook her head and stated "yeah, that was strange". Pt denied any further current paranoid thoughts at that time. This RN had pt's medications in a cup for her, pt states "Are those my 3 depakotes? I used to always take 3 depakote in the morning and at night but then I quit taking them. I need to get my medications adjusted". Medication education provided and assured pt that we would be assisting her in getting back on her medications and getting them regulated while she was here. Pt smiled and thanked this RN. Pt took medications without difficulty and was able to verbalize understanding of education provided. Pt denies SI/HI, intent or plan. Pt denies hallucinations, no response to internal stimuli noted. Pt does present with underlying paranoia throughout the shift as she has frequently asked the mental health worker if she has done something wrong and is apologizing for doing things wrong. Pt tearful at times. Support provided. Pt voiced delusional thoughts this afternoon as she came to the desk and asked "Am I ?" Staff stated "no". Pt states "Oh ok, I'm just fat then". Pt laughed and walked away. No aggressive behaviors displayed. No distress noted. P- Plan to continue current treatment, continue to monitor mood and behaviors, provide appropriate reorientation, redirection and 1:1 as needed. Continue to encourage medication compliance as well as group attendance and participation.
[2020-03-20 20:00] VITALS: BP 124/62
--- NOTE | 2020-03-20 21:55 | NUR ---
Patient alert and oriented to person,place and approx.to time. Mood is calm,cooperative,but very slow in response in her actions as well as her speech. Patient also isolative to self. Denies any hallucinations. No overt s/s any responding to internal stimuli noted at this time. Patient compliant with HS medications without any difficulty. Attempted to provide 1:1 for emotional support but patient refused. Redirected when needed. Plan to continue medication compliance. Also will continue to provide emotional support and continue to redirect when needed/appropriate. Will also continue to monitor moods/behaviors. Q 15 minute safety checks continued and maintained. See [facility] flowsheet for further documentation.
--- NOTE | 2020-03-21 00:10 | NUR ---
24 HR chart check completed.
--- NOTE | 2020-03-21 06:17 | NUR ---
Patient slept approx. 6.5 hours throughout shift. Q 15 minute safety checks continued and maintained.
[2020-03-21 07:57] VITALS: BP 129/64
--- NOTE | 2020-03-21 08:00 | NUR ---
Patient in dining room eating breakfast with peers. Respirations easy and regular. Vital signs stable. No overt distress. Telehealth assessment by MARGARITA Nogueira. Updates provided. JUAN ANTONIO PARR
--- NOTE | 2020-03-21 08:15 | NUR ---
Treatment Plan meeting was held via telephone with JADE Boudreaux RN, COMPUTER SYSTEM SPECIALIST-S and Borematic Operator. Plan for discharge Next Week. Pt. will return home with family at discharge.
--- NOTE | 2020-03-21 09:33 | NUR ---
DR QUIROGA ON UNIT TO ASSESS PT, UPDATE PROVIDED.
--- NOTE | 2020-03-21 14:28 | NUR ---
GROUP THERAPY PT PRESENT FOR MOVIES, SNACK, AND REMINISCING. PT PLEASANT T/O GROUP.
--- NOTE | 2020-03-21 15:18 | NUR ---
Attempted to reach pt's by phone. Unable to leave a message. Met with pt who stated that she is not having a good day. Pt explained further that she does not know where she will go to when she is discharged. Pt became tearful. Explained to pt that this sign writer hand is continuing to try to reach pt's to clarify discharge plan. Empathized with pt and offered support. Pt did not voice any delusional statements during interaction.
[2020-03-21 20:00] VITALS: BP 114/67
--- NOTE | 2020-03-21 21:37 | NUR ---
Patient alert and oriented to person,place and approx.to time. Mood is calm,cooperative,but less slow in response in her actions as well as her speech. Patient more interactive with staff and other patients. Denies any hallucinations. No overt s/s any responding to internal stimuli noted at this time. Patient compliant with HS medications without any difficulty. Attempted to provide 1:1 for emotional support but patient refused. Redirected when needed. Plan to continue medication compliance. Also will continue to provide emotional support and continue to redirect when needed/appropriate. Will also continue to monitor moods/behaviors. Q 15 minute safety checks continued and maintained. See [facility] flowsheet for further documentation.
--- NOTE | 2020-03-22 00:13 | NUR ---
24 HR chart check completed.
--- NOTE | 2020-03-22 05:45 | NUR ---
Patient slept approx. 6.5 hours throughout shift. Q 15 minute safety checks continued and maintained.
[2020-03-22 07:32] VITALS: BP 125/70
--- NOTE | 2020-03-22 08:42 | NUR ---
DR QUIROGA ON UNIT TO ASSESS PT, UPDATE PROVIDED.
--- NOTE | 2020-03-22 09:01 | NUR ---
PATIENT RECIEVED INVEGA SUSTENNA 234MG IM IN RIGHT DELTOID, TOLERATED WELL.
--- NOTE | 2020-03-22 13:40 | NUR ---
P: PT MOOD IS DEPRESSED, STATING "I FEEL DEPRESSED, WEAK AND CONFUSED." PT ISOLTIVE TO SELF THROUGHOUT THE DAY, WILL INTERACT WITH STAFF AT TIMES. PT SLOW TO PROCESS AND RESPOND AT TIMES. PT AFFECT IS FLAT. PT RESTLESS AT TIMES, UP AND DOWN OUT OF THE CHAIR, IN AND OUT OF HER ROOM AT TIMES. PT REPORTS TO STAFF AUDITORY HALLUCINATIONS STATING "I HEAR BIRDY NOISES IN MY EAR." I: PROVIDE EMOTIONAL SUPPORT AND 1:1 FOR PT TO VOCE FEELINGS, ENCOURAGE MED COMPLIANCE AND PROVIDE MED EDUCATION, ENCOURAGE GROUP PARTICIPATION AND SOCIALIZATION, RE-ORIENT AND PRESENT REALITY, OFFER DIVERSIONAL ACTIVITIES. R: PT ALERT TO PERSON, PLACE, TIME AND SITUATION. PT MED COMPLIANT WITHOUT DIFFICULTY, MED EDUCATION PROVIDED. PT RECEIVED INVEGA SUSTENNA TODAY, TOLERATED WITHOUT ISSUE. PT CONTINUES TO ISOLATE AT TIMES, EXHIBITS DECREASED RESTLESS AT TIMES. PT DENIES ANY SUICIDAL THOUGHTS OR BEHAVIORS. PT CONTINUES WITH AUDITORY HALLUCINATIONS STATE "OH THEY COME AND GO." PT AMBULATORY THROUGHOUT UNIT, GAIT STEADY. PT CONTINENT OF BOWEL AND BLADDER. P: MONITOR PT BEHAVIORS ON Q15 MIN SAFETY CHECKS, PROVIDE EMOTIONAL SUPPORT AND 1:1 FOR PT TO VOCE FEELINGS, ENCOURAGE MED COMPLIANCE AND PROVIDE MED EDUCATION, ENCOURAGE GROUP PARTICIPATION AND SOCIALIZATION, RE-ORIENT AND PRESENT REALITY, OFFER DIVERSIONAL ACTIVITIES.
[2020-03-22 20:00] VITALS: BP 136/72
--- NOTE | 2020-03-22 20:06 | NUR ---
Patient sitting in dining room with peers. No voiced complaints at this time. No s/s of distress noted, Resps even and unlabored on room air. Q15 minute checks maintained for safety.
--- NOTE | 2020-03-22 23:31 | NUR ---
P- ISOLATIVE TO SELF; DEPRESSED MOOD. I- ASSESS MOOD, ORIENTATION, SI/HI, HALLUCINATIONS, DELUSIONS OR PAIN. PROVIDE MEDICATIONS ON TIME WITH EDUCATION ON EACH. 1:1 THERAPEUTIC INTERACTION WITH EMOTIONAL SUPPORT AND VENTILATION OF FEELINGS PROVIDED. PROVIDE HS SNACK. EDUCATE AND ENCOURAGE PATIENT TO UTILIZE COPING SKILLS. R- PATIENT IS ALERT AND ORIENTED, WITH SOME ST CONFUSION NOTED. REORIENTATION EFFECTIVE. FLAT AFFECT. PT STATES THAT SHE FEELS SAD, PT DID NOT ELLABORATE ON WHY. PT NODDED WHEN COPING SKILLS WERE OFFERED. 1:1 INTERACTION SLIGHTLY EFFECTIVE. DENIES SI/HI, INTENT OR PLAN, HALLUCINATIONS OR PAIN. NO S/S OF INTERACTING WITH INTERNAL STIMULI; NO DELUSIONAL OR PARANOID THOUGHT PROCESS NOTED. NO S/S OF DISTRESS NOTED/ RESPS EVEN AND UNLABORED ON ROOM AIR. PT ISOLATIVE TO SELF; SITTING IN DINING ROOM BY HERSELF, ONLY INTERACTS WITH STAFF WHEN SPOKEN TO FIRST. MED COMPLIANT. ATE 100% OF HS SNACK. GAIT STEADY WHILE AMBULATING. MAKES NEEDS KNOWN. P- ASSESS MOOD, ORIENTATION, SI/HI, HALLUCINATIONS, DELUSIONS OR PAIN EVERY SHIFT. PROVIDE MEDS ON TIME WITH EDUCATION ON EACH. 1:1 INTERACTION AND COPING TECHNIQUES PROVIDED WHEN NECESSARY. Q15 MINUTE CHECKS MAINTAINED FOR SAFETY.
--- NOTE | 2020-03-23 02:57 | NUR ---
24 HR chart check completed.
--- NOTE | 2020-03-23 06:50 | NUR ---
PATIENT MONITORED ON Q15 MINUTE SAFETY CHECKS THROUGHOUT THE NIGHT, NOTED TO HAVE SLEPT APPROXIMATELY 8 HOURS. NO S/S OF DISTRESS NOTED. RESPS EVEN AND UNLABORED ON ROOM AIR.
[2020-03-23 07:38] VITALS: BP 123/66
--- NOTE | 2020-03-23 07:46 | NUR ---
Patient eating breakfast in dining room with peers. Respirations easy and regular. Vital signs stable. No overt distress. RUBÉN ROSE PHMNP-BC on unit to see pt at this time, update given.
--- NOTE | 2020-03-23 11:47 | NUR ---
P- Depressed mood, tearful I- Orientation, mood and behaviors assessed. Assessed pt for SI/HI, hallucinations, paranoia and/or delusions. Medications administered as per physician's orders. Assistance with ADL care provided as needed. Encouraged pt to attend and participate in mallory milieu groups and activities. R- Pt is alert and oriented x4. Periods of intermittent mild confusion and memory gaps noted at times. Resps easy and even on room air. Mood presents as depressed with underlying anxiety at times. Pt states "I feel very very depressed". Pt becomes tearful while talking to this RN and states "I'll never see my family again". Advised pt she can see her family again once she gets better and is discharged. Offered to call family on the phone for her, pt states she would like to do that later today. 1:1 and emotional support given effective in calming pt. Pt denies SI/HI, intent or plan. Pt denies hallucinations, no response to internal stimuli noted. No paranoia or delusions noted. Medication compliant without difficulty. Pt keeps to herself in the dining room. No s/s distress noted. P- Plan to continue current treatment, continue to monitor mood and behaviors, provide appropriate reorientation, redirection and 1:1 as needed. Continue to encourage medication compliance as well as group attendance and participation.
--- NOTE | 2020-03-23 16:06 | NUR ---
Shift chart check completed.
[2020-03-23 20:00] VITALS: BP 113/74
--- NOTE | 2020-03-23 22:27 | NUR ---
Patient alert and oriented to person,place and approx.to time. Mood is calm,cooperative,and pleasant. Patient more interactive with staff and other patients. Denies any hallucinations. No overt s/s any responding to internal stimuli noted at this time. Patient compliant with HS medications without any difficulty. Attempted to provide 1:1 for emotional support but patient refused. Redirected when needed. Plan to continue medication compliance. Also will continue to provide emotional support and continue to redirect when needed/appropriate. Will also continue to monitor moods/behaviors. Q 15 minute safety checks continued and maintained. See [facility] flowsheet for further documentation.
--- NOTE | 2020-03-24 00:15 | NUR ---
24 HR chart check completed.
--- NOTE | 2020-03-24 05:17 | NUR ---
Patient slept approx. 7 hours throughout shift. Q 15 minute safety checks continued and maintained.
--- NOTE | 2020-03-24 07:55 | NUR ---
Patient eating breakfast in dining room with peers. Respirations easy and regular. Vital signs stable. No overt distress. [facility] to [facility] pt at this time, update given.
[2020-03-24 07:59] VITALS: BP 124/53
--- NOTE | 2020-03-24 08:00 | NUR ---
on unit to see pt at this time, update given.
--- NOTE | 2020-03-24 09:00 | NUR ---
Treatment Plan meeting was held this a.m. via telephone with Dr. Parikh, JADE Boudreaux RN, SALES INCENTIVE ANALYST-S and Supervisor Boarding. Plan for discharge Tuesday/Next Week. Pt. came to [facility] from Home. Patient wants to return home.
--- NOTE | 2020-03-24 11:14 | NUR ---
Met with pt this AM. Pt reports that she is not doing very well because she hasn't heard from her family, and pt is worried about where she will be going at discharge. Empathized with pt and provided support. Reassured pt that this check writer salesperson is continuing to try to reach pt's family, and if need be, this check writer salesperson would work with pt to make sure pt has a place to go upon [facility] discharge. After leaving pt, left a voicemail message for pt's Marcio, requesting a return call. Attempted but was unable to reach or leave a voicemail message for pt's daughter Eloisa Thorne.
--- NOTE | 2020-03-24 17:07 | NUR ---
P- Depressed mood, flat affect, slow processing. One episode of tearfulness this AM. I- Orientation, mood and behaviors assessed. Assessed pt for SI/HI, hallucinations, paranoia and/or delusions. Medications administered as per physician's orders. Assistance with ADL care provided as needed. Encouraged pt to attend and participate in mallory milieu groups and activities. R- Pt is alert and oriented x4. Memory appears to be intact. Resps easy and even on room air. Mood is depressed with flat affect. Speech remains slow, coherent, able to make needs known without difficulty. Pt denies SI/HI, intent or plan. Pt denies hallucinations, no response to internal stimuli noted. No paranoia or delusions noted. Pt with one episode of tearfulness this AM as pt voiced cocern about where she would be discharged to since she hasn't been in contact with her family. Assured pt a safe discharge plan would be set up for her and that social media assistant is actively trying to reach her family. Pt voiced understanding and gratitude. No aggressive behaviors. No distress noted. P- Plan to continue current treatment, continue to monitor mood and behaviors, provide appropriate reorientation, redirection and 1:1 as needed. Continue to encourage medication compliance as well as group attendance and participation.
[2020-03-24 20:13] VITALS: BP 115/65
--- NOTE | 2020-03-24 23:57 | NUR ---
NO ADVERSE BEHAVIORS NOTED. PATIENT ALERT AND ORIENTED X4. PT CALM, COOPERATIVE, ISOLATIVE TO SELF. PT SAT IN DINING ROOM TO WATCH A MOVIE, ATE SNACK. PT MEDICATION COMPLIANT WITHOUT DIFFICULTY AFTER REVIEW. PT DENIES SI/HI, HALLUCINATIONS, DELUSIONS, OR PAIN. PT AMBULATORY WITH A STEADY GAIT, INDEPENDENT IN ADL'S WITH PROMPTING, CONTINENT OF BOWEL AND BLADDER. PT CURRENTLY LAYING DOWN WITH EYES CLOSED, RESPIRATIONS EASY AND REGULAR, NO SIGNS OR SYMPTOMS OF DISTRESS NOTED. PLAN IS TO CONTINUE TO MONITOR MOOD AND BEHAVIORS. PROVIDE 1:1 WITH THERAPEUTIC INTERVENTIONS. ENCOURAGE MEDICATION COMPLIANCE AND EDUCATE. MAINTAIN Q 15 MIN CHECKS AND PRN FOR SAFETY.
--- NOTE | 2020-03-25 05:09 | NUR ---
24 HOUR CHART CHECK COMPLETED.
--- NOTE | 2020-03-25 05:41 | NUR ---
PATIENT OBSERVED ON Q 15 MIN CHECKS TO HAVE SLEPT APPROX 7 HOURS UNINTERRUPTED. NO SIGNS OR SYMPTOMS OF DISTRESS NOTED.
[2020-03-25 08:00] VITALS: BP 127/67
--- NOTE | 2020-03-25 08:00 | NUR ---
and on unit to see pt at this time, update given. Made aware pt c/o cough, dry, nonproductive.
--- NOTE | 2020-03-25 09:14 | NUR ---
PRN Tessalon Perles 200mg PO given at this time for c/o cough. Will monitor for medication effect.
--- NOTE | 2020-03-25 09:37 | NUR ---
Treatment Plan meeting was held via telephone with Dr. Parikh, JADE Boudreaux RN and Barrel Cleaner. Plan for discharge Next Week. Pt. would like to return home at discharge.
--- NOTE | 2020-03-25 11:58 | NUR ---
Shilo velez effective for easing cough per pt report.
--- NOTE | 2020-03-25 15:15 | NUR ---
Assisted pt in phoning her . Pt had a positive conversation, and her confirmed that all was fine at home. Pt smiled throughout her conversation with her . Pt expressed relief after speaking with her . Pt stated that her mind tells her things that are not true and she was thinking that her family didn't want her. Discussed this further. Pt confirmed that the medication is helping her and she feels like her mind is clearing.
--- NOTE | 2020-03-25 15:16 | NUR ---
P- Depressed mood, flat affect, tearful at times, withdrawn I- Orientation, mood and behaviors assessed. Assessed pt for SI/HI, hallucinations, paranoia and/or delusions. Medications administered as per physician's orders. Assistance with ADL care provided as needed. Encouraged pt to attend and participate in mallory milieu groups and activities. R- Pt is alert and oriented to person, place, approx time. Mild memory gaps noted. Resps easy and even on room air. Pt reports mood as "very depressed". Flat affect persists. Speech is slow, coherent, able to make needs known without difficulty. Pt denies SI/HI, intent or plan. Pt denies hallucinations, no response to internal stimuli noted. No paranoia or delusions noted. Pt noted with to be tearful a few times this shift, pt states she is "sad" because "my family doesn't love me anymore, no one wants me". Pt continues to be upset about lack of communication with her family while hospitalized. Empathized with pt and emotional support provided. Pt is otherwise very pleasant and cooperative. Medication compliant without difficulty. Pt sits in the dining room a majority of the shift watching TV but remains withdrawn, minimal peer interactions noted. No distress noted. P- Plan to continue current treatment, continue to monitor mood and behaviors, provide appropriate reorientation, redirection and 1:1 as needed. Continue to encourage medication compliance as well as group attendance and participation.
[2020-03-25 19:57] VITALS: BP 126/67
--- NOTE | 2020-03-25 21:25 | NUR ---
Patient alert and oriented to person,place and approx.to time. Mood is calm,cooperative,pleasant,but flat. Patient more interactive with staff and other patients. Denies any hallucinations. No overt s/s any responding to internal stimuli noted at this time. Patient compliant with HS medications without any difficulty. Attempted to provide 1:1 for emotional support but patient refused. Redirected when needed. Plan to continue medication compliance. Also will continue to provide emotional support and continue to redirect when needed/appropriate. Will also continue to monitor moods/behaviors. Q 15 minute safety checks continued and maintained. See [facility] flowsheet for further documentation.
--- NOTE | 2020-03-26 00:12 | NUR ---
24 HR chart check completed.
--- NOTE | 2020-03-26 05:39 | NUR ---
Patient slept approx. 8 hours throughout shift. Q 15 minute safety checks continued and maintained.
[2020-03-26 07:35] VITALS: BP 133/63
--- NOTE | 2020-03-26 08:15 | NUR ---
DR. QUIROGA ON UNIT TO ASSESS PATIENT.
--- NOTE | 2020-03-26 09:00 | NUR ---
Treatment Plan meeting was held via telephone with Dr. Parikh, JADE Boudreaux RN, STRIP WINDER-S and Data Transcriber in attendance. Plan for discharge Tuesday with return home with family.
--- NOTE | 2020-03-26 12:40 | NUR ---
Patient received Invega 156mg IM in Left Deltoid. Patient tolerated well.
--- NOTE | 2020-03-26 16:41 | NUR ---
PATIENT IS ALERT AND ORIENTED TO PERSON, PLACE, TIME AND SITUATION, ABLE TO VOICE NEEDS. MOOD IS STABLE WITH FLAT AFFECT. DENIES ANY HALLUCINATIONS, DELUSION, HI/SI OR PAIN. MEDICATION COMPLAINT WITH EDUCATION. Q15 MINUTE SAFETY CHECKS MAINTAINED. 1 PERSON ASSIST VIA VERBAL CUEING FOR ACTIVITIES OF DAILY LIVING, CONTINENT OF BOWEL AND BLADDER. SET UP FOR MEALS, INTATKE ARE GOOD WITH ADEQUATE FLUIDS. AMBULATORY WITH STEADY GAIT. CONTINUE TO MONITOR FOR DELUSIONAL THOUGHTS PROVIDE ONE ON ONE FOR EMOTIONAL SUPPORT NEEDED.
[2020-03-26 20:00] VITALS: BP 131/58
--- NOTE | 2020-03-26 21:33 | NUR ---
Patient alert and oriented to person,place and approx.to time. Mood is calm,cooperative,pleasant,but flat. Patient more interactive with staff and other patients. Denies any hallucinations. No overt s/s any responding to internal stimuli noted at this time. Patient compliant with HS medications without any difficulty. Provided 1:1 for emotional support. Redirected when needed. Plan to continue medication compliance. Also will continue to provide emotional support and continue to redirect when needed/appropriate. Will also continue to monitor moods/behaviors. Q 15 minute safety checks continued and maintained. See [facility] flowsheet for further documentation.
--- NOTE | 2020-03-27 00:25 | NUR ---
24 HR chart check completed.
--- NOTE | 2020-03-27 05:24 | NUR ---
Patient slept approx. 6 hours throughout shift. Q 15 minute safety checks continued and maintained.
[2020-03-27 07:47] VITALS: BP 130/66
--- NOTE | 2020-03-27 08:04 | NUR ---
DR QUIROGA ON UNIT TO ASSESS PT, UPDATE PROVIDED.
--- NOTE | 2020-03-27 09:00 | NUR ---
Treatment Plan meeting was held via telephone with Dr. Jl RN and Pulverizer Operator. Plan for discharge Tuesday with return home with . Pt. will follow up with [facility].
--- NOTE | 2020-03-27 19:38 | NUR ---
24 HR chart check completed.
[2020-03-27 20:00] VITALS: BP 128/68
--- NOTE | 2020-03-27 21:00 | NUR ---
PT IS STABLE. ALERT & ORIENTED TO PERSON, PLACE, TIME & STATED SHE IS HERE BECAUSE SHE WAS GETTING HER MEDICATIONS MIXED UP. SHE IS PLEASANT & STATED THAT SHE IS "FEELING BETTER". DENIES FEELING DEPRESSED OR HAVING ANY ANXIETY. NO DELUSIONS VOICED. APPROPRIATE CONVERSATION WITH STAFF & PEERS. ATE SNACK. COMPLIANT WITH MEDICATIONS.
--- NOTE | 2020-03-28 05:25 | NUR ---
PT HAS SLEPT PAST 2114
--- NOTE | 2020-03-28 07:26 | NUR ---
DR QUIROGA ON UNIT TO ASSESS PT, UPDATE PROVIDED.
[2020-03-28 07:33] VITALS: BP 112/66
--- NOTE | 2020-03-28 08:30 | NUR ---
Treatment Plan meeting was held via telephone with JADE Boudreaux RN and Training Representative. Plan for dishcharge Tuesday. Pt. will return home on Tuesday.
--- NOTE | 2020-03-28 10:53 | NUR ---
AM GROUP PT WAS PRESENT FOR PAINTING AND CRAFTING, ACTIVELY PARTICIPATED.
--- NOTE | 2020-03-28 10:55 | NUR ---
PT ALERT TO PERSON, PLACE AND TIME. PT MED COMPLIANT WITHOUT DIFFICULTY, MED EDUCATION PROVIDED. PT CALM, MOOD IS STABLE. NO HALLUCINATIONS OR DELUSIONS NOTED. PT DENIES ANY SUICIDAL THOUGHTS OR BEHAVIORS. PT AMBULALTORY THROUGHOUT UNIT, GAIT STEADY. PT CONTINENT OF BOWEL AND BLADDER. PLAN IS TO MONITOR PT BEHAVIORS ON Q15 MIN SAFETY CHECKS, ENCOURAGE MED COMPLIANCE AND PROVIDE MED EDUCATION, PROVIDE EMOTIONAL SUPPORT AND 1:1 FOR PT TO VOICE FEELINGS.
[2020-03-28 20:00] VITALS: BP 120/62
--- NOTE | 2020-03-28 22:51 | NUR ---
PLEASENT AND INTERACTIVE WITH STAFF. REVIEWED ALL HER CURRENT MEDICATIONS PRIOR TO MED PASS. ALL QUESTIONS ANSWERED. DENIES ANY HALLUCINATIONS AT THIS TIME. STATES FEEL MUCH BETTER AND READY TO GO. WILL CONTINUE TO MONITOR FOR CHANGES IN BEHAVIOR/MOOD
--- NOTE | 2020-03-29 00:29 | NUR ---
RESTING QUIET AT THIS TIME 24 HR chart check completed.
--- NOTE | 2020-03-29 05:53 | NUR ---
SLEPT APPROX 7-8 HOURS UNINTERUPTED PAST 2130PM. MOVED SELF IN BED WITHOUT PROBLEMS
[2020-03-29 07:38] VITALS: BP 116/67
--- NOTE | 2020-03-29 09:58 | NUR ---
DR QUIROGA ON UNIT TO ASSESS PT, UPDATE PROVIDED.
--- NOTE | 2020-03-29 14:07 | NUR ---
PT ALERT TO PERSON, PLACE, TIME AND SITUATION. PT MED COMPLIANT WITHOUT DIFFICULTY, MED EDUCATION PROVIDED. PT CALM, MOOD IS STABLE. PT PLEASANT, COOPERATIVE AND INTERACTIVE WITH STAFF AND PEERS. NO HALLUCIATIONS OR DELUSIONS NOTED. PT DENIES ANY SUICIDAL THOUGHTS. PT SHOWERED THIS SHIFT. PT AMBULATORY, GAIT STEADY. PT CONTINENT OF BOWEL AND BLADDER. PLAN IS TO MONITOR PT BEHAVIORS ON Q15 MIN SAFETY CHECKS, ENCOURAGE MED COMPLIANCE AND PROVIDE MEDUCATION, PROVIDE EMOTIONAL SUPPORT AND 1:1 FOR PT TO VOICE FEELINGS.
[2020-03-29 20:00] VITALS: BP 124/68
--- NOTE | 2020-03-29 20:40 | NUR ---
INTERACTIVE WITH STAFF AND PEERS. SNACK PROVIDED BY STAFF. REVIEWED ALL MEDICATIONS PRIOR TO DISPENSING. STATES HAD A GOOD DAY AND NOW FEELING TIRED. WILL MONITOR FOR CHANGES IN MOOD AND BEHAVIOR AND Q 15 MINUTES AND PRN FOR SAFETY.
--- NOTE | 2020-03-30 05:52 | NUR ---
SLEPT WELL PAST 2144
[2020-03-30 07:41] VITALS: BP 127/52
--- NOTE | 2020-03-30 08:00 | NUR ---
DR. QUIROGA ON UNIT TO ASSESS PATIENT.
--- NOTE | 2020-03-30 15:17 | NUR ---
Shift chart check completed.
--- NOTE | 2020-03-30 16:51 | NUR ---
NO ADVERSE MOODS OR BEHAVIORS NOTED THIS SHIFT. SEE [facility] FLOWSHEET FOR SPECIFIC MONITORING.
[2020-03-30 19:45] VITALS: BP 153/66
--- NOTE | 2020-03-31 00:48 | NUR ---
PT HAS BEEN PLEASANT T/O SHIFT. MEDICATION COMPLIANT, INTERACTIVE AND APPROPRIATE. Q 15 MIN MONITORING PER POLICY FOR SAFETY. PT IS RESTING QUIETLY AT THIS TIME.
--- NOTE | 2020-03-31 06:06 | NUR ---
PT SLEPT 9 HOURS THIS SHIFT.
[2020-03-31 07:31] VITALS: BP 128/65
--- NOTE | 2020-03-31 07:40 | NUR ---
DR. QUIROGA ON UNIT TO ASSESS PATIENT AND INFORMED OF PATIENT BEING DISCHARGED HOME.
[2020-03-31] MEDS ORDERED: MIRTAZAPINE30 M2 PO (08:44)
[2020-03-31] MEDS ORDERED: DIVALPROEX SOD250 MG PO (08:44)
[2020-03-31] MEDS ORDERED: TRIHEXYPHENIDYL2 M3 PO (08:44)
[2020-03-31] MEDS ORDERED: INVEGA SUSTENN156 MG IM (08:46)
--- NOTE | 2020-03-31 09:00 | NUR ---
Treatment Plan meeting was held this A.M. with Dr. Parikh, JADE Boudreaux, RN, TECHNICAL BUYER-S and Financial Retirement Plan Specialist. Plan for discharge today with return home. [facility] Follow up with Dr. Vicike Whyte. Transportation Provided by Family with supervisor lending activities time 11:00.
--- NOTE | 2020-03-31 11:35 | NUR ---
PATIENT READY FOR DISCHARGE, ALL BELONGING GATHERED, DISCHARGE INSTRUCTIONS SIGNED. PATIENT ASSISTED TO INTO WHEELCHAIR AND OFF UNIT WITH STAFF ASSISTANCE TO PRIVATE VEHICLE.
--- NOTE | 2020-03-31 11:52 | NUR ---
Met with pt prior to her discharge. Pt reports that she is feeling much better and ready to return home. Pt stated that she has been speaking with her on the phone and he has shared that pt is doing much better. Discussed the importance of medication compliance. Discussed pt's follow-up.
--- NOTE | 2020-03-31 11:54 | NUR ---
Patient discharged to home today with her . Follow-up was scheduled at [facility]. While at [facility], pt's paranoia resolved. Pt's anxiety and depression also resolved. Pt reported that she was feeling so much better and ready for discharge.
== END 2020-03-31 11:35 | disposition home or self-care (01) | DRG 885 ==
LOC: 3N 17:17
PROVIDERS: ADMIT Psychiatry & Neurology Psychiatry
DX: F25.0 Schizoaffective disorder, bipolar type (principal); F23 Brief psychotic disorder; F41.9 Anxiety disorder, unspecified; F43.10 Post-traumatic stress disorder, unspecified; R74.0 Nonspecific elevation of levels of transaminase and lactic acid dehydrogenase [LDH]; R79.82 Elevated C-reactive protein (CRP); E78.5 Hyperlipidemia, unspecified; R79.89 Other specified abnormal findings of blood chemistry; I12.9 Hypertensive chronic kidney disease with stage 1 through stage 4 chronic kidney disease, or unspecified chronic kidney disease; E03.9 Hypothyroidism, unspecified; E55.9 Vitamin D deficiency, unspecified; R56.9 Unspecified convulsions; R09.81 Nasal congestion; N18.3 Chronic kidney disease, stage 3 (moderate); Z88.1 Allergy status to other antibiotic agents; Z79.899 Other long term (current) drug therapy

== ENCOUNTER 2022-05-20 01:41 | Emergency (ER) | payer MEDICARE ==
[~2022-05-20] VITALS: Ht 162.5 cm; Wt 72.6 kg
[~2022-05-20 01:41] MED LIST changes: +DEPAKOTE250 MG PO; +FLONASE ALLERG9.9 ML NAS; +INVEGA SUSTENN156 MG IM; +MIRTAZAPINE30 M2 PO
== END 2022-05-20 04:19 | disposition home or self-care (01) ==
LOC: ED 01:41
DX: U07.1 COVID-19 (principal); Z87.891 Personal history of nicotine dependence; Z90.49 Acquired absence of other specified parts of digestive tract; Z79.899 Other long term (current) drug therapy; Z88.1 Allergy status to other antibiotic agents

== ENCOUNTER → 2022-09-10 | Outpatient (CLI) | payer MEDICARE ==
[2022-09-10 10:16] LABS: BASO % 0.5 % (0.0-1.0); EOS # 0.1 10*3/uL (0.0-0.4); HEMATOCRIT 40.3 % (37.0-47.0); LYMPH % 35.1 % (27.0-41.0); MEAN CELL VOLUME 104.9 fl (81.0-99.0); MEAN CORPUSCULAR HGB 35.2 pg (27.0-31.0); MEAN CORPUSCULAR HGB CONC 33.5 g/dl (33.0-37.0); MEAN PLATELET VOLUME 9.8 fl (9.6-12.3); MONO # 0.5 10*3/uL (0.1-1.0); MONO % 9.6 % (3.0-9.0); NEUT % 52.6 % (47.0-73.0); PLATELET COUNT AUTOMATED 134 10*3/uL (130-400); RED BLOOD COUNT 3.84 10*6/uL (4.10-5.10); RED CELL DISTRI WIDTH 13.3 % (0-14.5); WHITE BLOOD COUNT 5.6 10*3/uL (4.8-10.8)
[2022-09-10 10:48] LABS: CREATININE 1.69 mg/dL (0.55-1.02); POTASSIUM 4.4 mmol/L (3.5-5.1)
[2022-09-10 11:29] LABS: VITAMIN D, 25-HYDROXY 66.9 ng/mL (30-100)
[2022-09-10 12:14] LABS: BILIRUBIN Negative (Negative); BLOOD Negative (Negative); CLARITY Cloudy (Clear); COLOR Yellow (Yellow); GLUCOSE Negative (Negative); KETONE Negative (Negative); LEUKO ESTERASE 2+ (Negative); NITRITE Negative (Negative); PH 6.5 (4.5-8.0); UROBILINOGEN 0.2 E.U./dl (0.0-1.0)
[2022-09-10 12:21] LABS: URINE CREATININE RANDOM 62.9 mg/dL
[2022-09-10 12:27] LABS: BACTERIA 3+; EPITHELIAL CELLS 21-30; WBC 31-40 wbc/hpf (0-5)
[2022-09-11 07:06] LABS: CREATININE,URINE 58.3 mg/dL (Not Estab.)
== END ==
LOC: LAB 09:41
PROVIDERS: Nurse Practitioner Family; ATTEND Internal Medicine
DX: N18.32 Chronic kidney disease, stage 3b (principal); D63.1 Anemia in chronic kidney disease; D69.6 Thrombocytopenia, unspecified; E55.9 Vitamin D deficiency, unspecified

== ENCOUNTER → 2022-10-22 | Outpatient (CLI) | payer MEDICARE ==
[2022-10-22 10:54] LABS: FREE T4 1.28 ng/dl (0.89-1.76); THYROID STIM HORMONE (HS) 1.735 uIU/ml (0.550-4.780)
== END | disposition home or self-care (01) ==
LOC: LAB 09:53
PROVIDERS: ATTEND Nurse Practitioner Family
DX: E03.9 Hypothyroidism, unspecified (principal)

== ENCOUNTER → 2022-12-13 | Outpatient (CLI) | payer MEDICARE ==
[2022-12-13 09:40] LABS: POTASSIUM 4.7 mmol/L (3.4-5.1); TOTAL PROTEIN 6.6 gm/dL (6.0-8.0); VALPROIC ACID (DEPAKENE) 49.5 ug/ml (50-100)
== END | disposition home or self-care (01) ==
LOC: LAB 08:41
PROVIDERS: ATTEND Nurse Practitioner Family
DX: Z79.899 Other long term (current) drug therapy (principal)

== ENCOUNTER → 2023-06-08 | Outpatient (CLI) | payer MEDICARE | END | disposition home or self-care (01) | LOC: LAB 09:53 | PROVIDERS: ATTEND Nurse Practitioner Family | DX: Z79.899 Other long term (current) drug therapy (principal) ==

== ENCOUNTER 2024-03-02 19:28 | Inpatient (IN) | payer MEDICARE ==
[~2024-03-02] VITALS: Ht 157.4 cm; Wt 59.5 kg
[2024-03-02 19:30] VITALS: BP 145/85
[2024-03-02 20:01] LABS: BASO # 0.1 10*3/uL (0.0-0.1); BASO % 0.6 % (0.0-1.0); EOS # 0.1 10*3/uL (0.0-0.4); EOS % 0.9 % (1.0-4.0); HEMATOCRIT 42.1 % (37.0-47.0); LYMPH % 33.5 % (27.0-41.0); MEAN CELL VOLUME 94.2 fl (81.0-99.0); MEAN CORPUSCULAR HGB 32.2 pg (27.0-31.0); MEAN CORPUSCULAR HGB CONC 34.2 g/dl (33.0-37.0); MEAN PLATELET VOLUME 9.9 fl (9.6-12.3); MONO # 0.8 10*3/uL (0.1-1.0); NEUT % 55.8 % (47.0-73.0); PLATELET COUNT AUTOMATED 199 10*3/uL (130-400); RED BLOOD COUNT 4.47 10*6/uL (4.10-5.10); RED CELL DISTRI WIDTH 13.7 % (0-14.5); WHITE BLOOD COUNT 8.9 10*3/uL (4.8-10.8)
[2024-03-02 20:18] LABS: BILIRUBIN Negative (Negative); BLOOD Negative (Negative); CLARITY Clear (Clear); COLOR Yellow (Yellow); GLUCOSE Negative (Negative); KETONE Negative (Negative); LEUKO ESTERASE 3+ (Negative); NITRITE Negative (Negative); PH 6.5 (4.5-8.0); SPECIFIC GRAVITY <= 1.005 (1.001-1.030)
[2024-03-02 20:23] LABS: ALKALINE PHOSPHATASE 87 U/L (46-116); BUN 11 mg/dl (9-23); CHLORIDE 108 mmol/L (98-107); POTASSIUM 4.1 mmol/L (3.4-5.1); SGPT/ALT 19 U/L (5-49)
[2024-03-02 20:25] LABS: URINE AMPHETAMINES Negative (1000ng/ml); URINE BARBITURATES Negative (200ng/ml); URINE BENZODIAZEPINES Negative (200ng/ml); URINE CANNABINOIDS (THC) Negative (50ng/ml); URINE COCAINE Negative (300ng/ml); URINE METHADONE Negative (300ng/ml); URINE OPIATES Negative (300ng/ml); URINE PHENCYCLIDINE Negative (25ng/ml)
[2024-03-02 20:26] LABS: ETHYL ALCOHOL < 3.0 mg/dl (<3)
[2024-03-02 20:26] LABS: BACTERIA 2+; MUCOUS 1+; WBC 41-50 wbc/hpf (0-5)
[2024-03-02] MEDS ORDERED: Ceftriaxone Sodium 1 GM/10 ML SYR IV ONE (20:45)
[2024-03-02 22:11] VITALS: BP 130/62
[2024-03-02] MEDS ORDERED: MORPHINE Sulfate 2 MG/ML SYR IV PRN (22:45)
[2024-03-02] MEDS ORDERED: BISACODYL 10 MG SUPP R PRN (22:45)
[2024-03-02] MEDS ORDERED: Ondansetron Hydrochloride 4 MG/2 ML VIAL IV PRN (22:45)
[2024-03-02] MEDS ORDERED: BISACODYL 5 MG TAB PO PRN (22:45)
[2024-03-02] MEDS ORDERED: Acetaminophen/Hydrocodone 5 MG/325 MG TABLET PO PRN (22:45)
[2024-03-02] MEDS ORDERED: ACETAMINOPHEN 650 MG SUPP R PRN (22:45)
[2024-03-02] MEDS ORDERED: ACETAMINOPHEN 325 MG TAB PO PRN (22:45)
[2024-03-02] MEDS ORDERED: OLANZAPINE7.5 M1 PO (23:02)
[2024-03-03 02:22] VITALS: BP 130/64
[2024-03-03] MEDS ORDERED: Levothyroxine Sodium 75 MCG TAB PO SCH (06:00)
[2024-03-03 06:22] VITALS: BP 134/72
[2024-03-03 06:57] LABS: BASO # 0.1 10*3/uL (0.0-0.1); BASO % 0.8 % (0.0-1.0); EOS # 0.1 10*3/uL (0.0-0.4); EOS % 1.6 % (1.0-4.0); HEMATOCRIT 42.2 % (37.0-47.0); LYMPH # 2.1 10*3/uL (1.3-4.4); MEAN CORPUSCULAR HGB CONC 32.9 g/dl (33.0-37.0); MEAN PLATELET VOLUME 10.4 fl (9.6-12.3); MONO # 0.6 10*3/uL (0.1-1.0); MONO % 9.5 % (3.0-9.0); NEUT # 3.6 10*3/uL (2.3-7.9); NEUT % 54.9 % (47.0-73.0); PLATELET COUNT AUTOMATED 189 10*3/uL (130-400); RED BLOOD COUNT 4.35 10*6/uL (4.10-5.10); RED CELL DISTRI WIDTH 13.9 % (0-14.5); WHITE BLOOD COUNT 6.5 10*3/uL (4.8-10.8)
[2024-03-03 07:32] LABS: FREE T4 1.16 ng/dl (0.89-1.76); POTASSIUM 4.5 mmol/L (3.4-5.1); TOTAL PROTEIN 6.7 gm/dL (6.0-8.0)
[2024-03-03] MEDS ORDERED: Albuterol Sulf/Ipratropium 3 ML VIAL NEB ONE (08:25)
[2024-03-03] MEDS ORDERED: Trihexyphenidyl Hydrochlorid 2 MG TAB PO SCH (09:00)
[2024-03-03] MEDS ORDERED: DIVALPROEX ER 250 MG TAB PO SCH (09:00)
[2024-03-03] MEDS ORDERED: GUAIFENESIN 600 MG TAB ER PO SCH (10:00)
[2024-03-03] MEDS ORDERED: Enoxaparin Sodium 30 MG/0.3 ML SYR SC SCH (10:00)
[2024-03-03 11:00] VITALS: BP 142/75
[2024-03-03 14:02] VITALS: BP 118/74
[2024-03-03] MEDS ORDERED: LEVOTHYROXINE50 MCG PO (18:30)
[2024-03-03 20:00] VITALS: BP 149/81
[2024-03-03] MEDS ORDERED: OLANZAPINE 7.5 MG TAB PO SCH (21:00)
[2024-03-03] MEDS ORDERED: Ceftriaxone Sodium 1 GM in SYRINGE INFUSION 10 ML IV SCH (22:00)
[2024-03-04] VITALS: BP 118/56
[2024-03-04 06:14] LABS: BASO # 0.1 10*3/uL (0.0-0.1); BASO % 0.5 % (0.0-1.0); EOS # 0.2 10*3/uL (0.0-0.4); EOS % 1.7 % (1.0-4.0); HEMATOCRIT 39.3 % (37.0-47.0); LYMPH # 2.6 10*3/uL (1.3-4.4); LYMPH % 27.4 % (27.0-41.0); MEAN CELL VOLUME 95.6 fl (81.0-99.0); MEAN CORPUSCULAR HGB 31.9 pg (27.0-31.0); MEAN CORPUSCULAR HGB CONC 33.3 g/dl (33.0-37.0); MEAN PLATELET VOLUME 10.5 fl (9.6-12.3); MONO # 0.8 10*3/uL (0.1-1.0); MONO % 8.5 % (3.0-9.0); NEUT # 5.8 10*3/uL (2.3-7.9); NEUT % 61.6 % (47.0-73.0); PLATELET COUNT AUTOMATED 177 10*3/uL (130-400); RED BLOOD COUNT 4.11 10*6/uL (4.10-5.10); RED CELL DISTRI WIDTH 13.8 % (0-14.5); WHITE BLOOD COUNT 9.5 10*3/uL (4.8-10.8)
[2024-03-04 08:00] VITALS: BP 136/67
[2024-03-04 12:00] VITALS: BP 144/60
[2024-03-04 16:00] VITALS: BP 119/64
[2024-03-04 20:52] VITALS: BP 153/76
[2024-03-05] VITALS: BP 129/73
[2024-03-05 06:49] LABS: BASO % 0.6 % (0.0-1.0); EOS # 0.2 10*3/uL (0.0-0.4); EOS % 2.1 % (1.0-4.0); HEMATOCRIT 42.2 % (37.0-47.0); LYMPH # 2.1 10*3/uL (1.3-4.4); LYMPH % 29.1 % (27.0-41.0); MEAN CELL VOLUME 97.7 fl (81.0-99.0); MEAN CORPUSCULAR HGB 32.2 pg (27.0-31.0); MEAN CORPUSCULAR HGB CONC 32.9 g/dl (33.0-37.0); MEAN PLATELET VOLUME 10.5 fl (9.6-12.3); MONO # 0.6 10*3/uL (0.1-1.0); MONO % 8.1 % (3.0-9.0); NEUT # 4.2 10*3/uL (2.3-7.9); NEUT % 59.8 % (47.0-73.0); PLATELET COUNT AUTOMATED 178 10*3/uL (130-400); RED BLOOD COUNT 4.32 10*6/uL (4.10-5.10); RED CELL DISTRI WIDTH 13.6 % (0-14.5); WHITE BLOOD COUNT 7.1 10*3/uL (4.8-10.8)
[2024-03-05 07:17] LABS: POTASSIUM 5.1 mmol/L (3.4-5.1)
[2024-03-05 08:00] VITALS: BP 130/76
[2024-03-05 12:00] VITALS: BP 128/60
[2024-03-05 16:00] VITALS: BP 155/64
[2024-03-05 20:00] VITALS: BP 135/52
[2024-03-06] VITALS: BP 130/60
[2024-03-06 06:11] LABS: BASO % 0.6 % (0.0-1.0); EOS # 0.1 10*3/uL (0.0-0.4); EOS % 2.1 % (1.0-4.0); HEMATOCRIT 40.2 % (37.0-47.0); LYMPH # 2.1 10*3/uL (1.3-4.4); LYMPH % 32.2 % (27.0-41.0); MEAN CELL VOLUME 95.7 fl (81.0-99.0); MEAN CORPUSCULAR HGB 31.4 pg (27.0-31.0); MEAN CORPUSCULAR HGB CONC 32.8 g/dl (33.0-37.0); MEAN PLATELET VOLUME 10.8 fl (9.6-12.3); MONO # 0.5 10*3/uL (0.1-1.0); NEUT # 3.8 10*3/uL (2.3-7.9); NEUT % 56.8 % (47.0-73.0); PLATELET COUNT AUTOMATED 175 10*3/uL (130-400); RED CELL DISTRI WIDTH 13.8 % (0-14.5); WHITE BLOOD COUNT 6.6 10*3/uL (4.8-10.8)
[2024-03-06 06:32] LABS: POTASSIUM 4.5 mmol/L (3.4-5.1)
[2024-03-06 08:00] VITALS: BP 128/57
[2024-03-06] MEDS ORDERED: LEVOTHYROXINE75 MCG PO ×2 (10:55→10:56)
[2024-03-06 12:00] VITALS: BP 135/61
[2024-03-06 16:00] VITALS: BP 130/62
[2024-03-06] MEDS ORDERED: LEVOTHYROXINE75 MC1 PO (18:19)
== END 2024-03-06 17:10 | DRG 689 ==
LOC: ED 19:28 → EDHOLD 21:26 → 4E 21:26
PROVIDERS: Internal Medicine; Student in an Organized Health Care Education/Training Program; ADMIT Internal Medicine; ATTEND Internal Medicine
DX: N30.00 Acute cystitis without hematuria (principal); G93.41 Metabolic encephalopathy; E44.0 Moderate protein-calorie malnutrition; F32.3 Major depressive disorder, single episode, severe with psychotic features; F23 Brief psychotic disorder; R73.9 Hyperglycemia, unspecified; E87.8 Other disorders of electrolyte and fluid balance, not elsewhere classified; N18.32 Chronic kidney disease, stage 3b; J20.9 Acute bronchitis, unspecified; I12.9 Hypertensive chronic kidney disease with stage 1 through stage 4 chronic kidney disease, or unspecified chronic kidney disease; R56.9 Unspecified convulsions; F17.210 Nicotine dependence, cigarettes, uncomplicated; J41.0 Simple chronic bronchitis; R32 Unspecified urinary incontinence; E03.9 Hypothyroidism, unspecified; Z88.8 Allergy status to other drugs, medicaments and biological substances; Z71.6 Tobacco abuse counseling; Z79.899 Other long term (current) drug therapy; Z68.24 Body mass index [BMI] 24.0-24.9, adult

== ENCOUNTER → 2024-04-19 | Outpatient (CLI) | payer MEDICARE ==
[~2024-04-19] MED LIST changes: +LEVOTHYROXINE50 MCG PO; +LEVOTHYROXINE75 MC1 PO; +LEVOTHYROXINE75 MCG PO; +OLANZAPINE7.5 M1 PO; +RISPERDAL1 M1 PO
[2024-04-19 10:26] LABS: ALKALINE PHOSPHATASE 88 U/L (46-116); BUN 13 mg/dl (9-23); CHLORIDE 109 mmol/L (98-107); CHOLESTEROL 171 mg/dL (<200); LDL CHOLESTEROL 90 mg/dL (9-159); POTASSIUM 4.7 mmol/L (3.4-5.1); SGPT/ALT < 7 U/L (5-49); TOTAL PROTEIN 6.9 gm/dL (6.0-8.0); TRIGLYCERIDES 52 mg/dl (<150)
== END | disposition home or self-care (01) ==
LOC: LAB 09:39
PROVIDERS: ATTEND Nurse Practitioner Family
DX: Z79.899 Other long term (current) drug therapy (principal)

== ENCOUNTER 2024-07-24 02:23 | Inpatient (IN) | payer MEDICARE ==
[~2024-07-24] VITALS: Ht 162.5 cm; Wt 68.0 kg
[2024-07-24 02:27] VITALS: BP 160/78
[2024-07-24 02:45] LABS: BASO % 0.5 % (0.0-1.0); EOS # 0.1 10*3/uL (0.0-0.4); EOS % 1.5 % (1.0-4.0); HEMATOCRIT 37.9 % (37.0-47.0); LYMPH % 26.2 % (27.0-41.0); MEAN CELL VOLUME 100.3 fl (81.0-99.0); MEAN CORPUSCULAR HGB 33.3 pg (27.0-31.0); MEAN CORPUSCULAR HGB CONC 33.2 g/dl (33.0-37.0); MEAN PLATELET VOLUME 10.5 fl (9.6-12.3); MONO # 0.9 10*3/uL (0.1-1.0); MONO % 11.5 % (3.0-9.0); NEUT # 4.5 10*3/uL (2.3-7.9); NEUT % 60.2 % (47.0-73.0); PLATELET COUNT AUTOMATED 164 10*3/uL (130-400); RED BLOOD COUNT 3.78 10*6/uL (4.10-5.10); RED CELL DISTRI WIDTH 14.6 % (0-14.5); WHITE BLOOD COUNT 7.5 10*3/uL (4.8-10.8)
[2024-07-24 02:45] LABS: BILIRUBIN Negative (Negative); BLOOD Negative (Negative); CLARITY Clear (Clear); COLOR Yellow (Yellow); GLUCOSE Negative (Negative); KETONE Negative (Negative); LEUKO ESTERASE 2+ (Negative); NITRITE Negative (Negative); PH 5.5 (4.5-8.0); SPECIFIC GRAVITY <= 1.005 (1.001-1.030)
[2024-07-24 02:55] LABS: EPITHELIAL CELLS 16-20
[2024-07-24 03:09] LABS: POTASSIUM 3.9 mmol/L (3.4-5.1)
[2024-07-24] MEDS ORDERED: Ceftriaxone Sodium 1 GM/10 ML SYR IV ONE (03:25)
[2024-07-24] MEDS ORDERED: SODIUM CHLORIDE 0.9% 1,000 ML IV ONE (03:25)
[2024-07-24] MEDS ORDERED: Magnesium Hydroxide 30 ML UDC PO PRN (04:20)
[2024-07-24] MEDS ORDERED: ACETAMINOPHEN 325 MG TAB PO PRN (04:20)
[2024-07-24] MEDS ORDERED: BISACODYL 10 MG SUPP R PRN (04:20)
[2024-07-24] MEDS ORDERED: Acetaminophen/Hydrocodone 5 MG/325 MG TABLET PO PRN (04:20)
[2024-07-24] MEDS ORDERED: MORPHINE Sulfate 2 MG/ML SYR IV PRN (04:20)
[2024-07-24] MEDS ORDERED: BISACODYL 5 MG TAB PO PRN (04:20)
[2024-07-24] MEDS ORDERED: TEMAZEPAM 15 MG CAP PO PRN (04:20)
[2024-07-24] MEDS ORDERED: ACETAMINOPHEN 650 MG SUPP R PRN (04:20)
[2024-07-24] MEDS ORDERED: Ondansetron Hydrochloride 4 MG/2 ML VIAL IV PRN (04:20)
[2024-07-24] MEDS ORDERED: Pantoprazole Sodium 40 MG TAB PO PRN (04:25)
[2024-07-24] MEDS ORDERED: Albuterol Sulf/Ipratropium 3 ML VIAL NEB SCH (05:20)
[2024-07-24 07:32] VITALS: BP 136/51
[2024-07-24 09:43] LABS: POTASSIUM 3.7 mmol/L (3.4-5.1)
[2024-07-24] MEDS ORDERED: Enoxaparin Sodium 30 MG/0.3 ML SYR SC SCH (10:00)
[2024-07-24] MEDS ORDERED: GUAIFENESIN 600 MG TAB ER PO SCH (10:00)
[2024-07-24] MEDS ORDERED: OMNICEF300 MG PO (10:33)
[2024-07-25] MEDS ORDERED: Ceftriaxone Sodium 1 GM in SYRINGE INFUSION 10 ML IV SCH (10:00)
== END 2024-07-24 15:44 | DRG 689 ==
LOC: ED 02:23 → EDHOLD 03:59
PROVIDERS: Internal Medicine; Student in an Organized Health Care Education/Training Program; ADMIT Internal Medicine; ATTEND Internal Medicine
DX: N30.00 Acute cystitis without hematuria (principal); G93.41 Metabolic encephalopathy; N18.4 Chronic kidney disease, stage 4 (severe); F20.9 Schizophrenia, unspecified; F32.9 Major depressive disorder, single episode, unspecified; E03.9 Hypothyroidism, unspecified; F17.210 Nicotine dependence, cigarettes, uncomplicated; I12.9 Hypertensive chronic kidney disease with stage 1 through stage 4 chronic kidney disease, or unspecified chronic kidney disease; E78.2 Mixed hyperlipidemia; E55.9 Vitamin D deficiency, unspecified; R56.9 Unspecified convulsions; Z20.822 Contact with and (suspected) exposure to COVID-19; Z88.8 Allergy status to other drugs, medicaments and biological substances

== ENCOUNTER 2024-09-16 20:15 | Emergency (ER) | payer MEDICARE ==
[~2024-09-16] VITALS: Wt 59.0 kg
[~2024-09-16 20:15] MED LIST changes: +AMOX-CLAV 875-1 EACH PO; +AVPAK AZITHROM250 M1 PO; +OMNICEF300 MG PO; +RISPERIDONE0.5 MG PO
[2024-09-16] MEDS ORDERED: DIVALPROEX SOD250 M1 PO (20:38)
[2024-09-16] MEDS ORDERED: RISPERIDONE1 MG PO (20:39)
[2024-09-16 21:29] LABS: BUN 15 mg/dl (9-23); CHLORIDE 107 mmol/L (98-107); ETHYL ALCOHOL < 3.0 mg/dl (<3); POTASSIUM 4.5 mmol/L (3.4-5.1); VALPROIC ACID (DEPAKENE) 47.1 ug/ml (50-100)
[2024-09-16 21:36] LABS: BILIRUBIN Negative (Negative); BLOOD Negative (Negative); CLARITY Clear (Clear); COLOR Yellow (Yellow); GLUCOSE Negative (Negative); KETONE Negative (Negative); LEUKO ESTERASE 1+ (Negative); NITRITE Negative (Negative); PH 6.5 (4.5-8.0); SPECIFIC GRAVITY <= 1.005 (1.001-1.030); UROBILINOGEN 0.2 E.U./dl (0.0-1.0)
[2024-09-16 21:41] LABS: URINE AMPHETAMINES Negative (1000ng/ml); URINE BARBITURATES Negative (200ng/ml); URINE BENZODIAZEPINES Negative (200ng/ml); URINE CANNABINOIDS (THC) Negative (50ng/ml); URINE COCAINE Negative (300ng/ml); URINE METHADONE Negative (300ng/ml); URINE OPIATES Negative (300ng/ml); URINE PHENCYCLIDINE Negative (25ng/ml)
[2024-09-16 21:44] LABS: BASO # 0.1 10*3/uL (0.0-0.1); BASO % 0.7 % (0.0-1.0); EOS # 0.2 10*3/uL (0.0-0.4); EOS % 2.1 % (1.0-4.0); HEMATOCRIT 39.5 % (37.0-47.0); MEAN CELL VOLUME 99.7 fl (81.0-99.0); MEAN CORPUSCULAR HGB 32.3 pg (27.0-31.0); MEAN CORPUSCULAR HGB CONC 32.4 g/dl (33.0-37.0); MONO # 0.7 10*3/uL (0.1-1.0); MONO % 8.7 % (3.0-9.0); NEUT # 4.4 10*3/uL (2.3-7.9); NEUT % 57.8 % (47.0-73.0); PLATELET COUNT AUTOMATED 179 10*3/uL (130-400); RED BLOOD COUNT 3.96 10*6/uL (4.10-5.10); RED CELL DISTRI WIDTH 12.7 % (0-14.5); WHITE BLOOD COUNT 7.5 10*3/uL (4.8-10.8)
[2024-09-16 21:52] LABS: BACTERIA TRACE; WBC 16-20 wbc/hpf (0-5)
== END 2024-09-16 22:30 | disposition home or self-care (01) ==
LOC: ED 20:15
PROVIDERS: Physician Assistant Medical
DX: F39 Unspecified mood [affective] disorder (principal); F20.0 Paranoid schizophrenia; F17.200 Nicotine dependence, unspecified, uncomplicated; Z88.8 Allergy status to other drugs, medicaments and biological substances; Z79.899 Other long term (current) drug therapy; Z90.89 Acquired absence of other organs

== ENCOUNTER 2025-01-13 17:44 | Inpatient (IN) | payer MEDICARE ==
[~2025-01-13] VITALS: Ht 154.9 cm; Wt 65.6 kg
[~2025-01-13 17:44] MED LIST changes: +DEPAKOTE500 M2 PO; +DIVALPROEX SOD250 M1 PO; +MEMANTINE HCL10 MG PO; +PHARMASSURE V500 MCG PO; +RISPERIDONE1 MG PO; +RIVASTIGMINE1 EAC2 T
[2025-01-13 18:22] LABS: BASO % 0.5 % (0.0-1.0); EOS # 0.1 10*3/uL (0.0-0.4); EOS % 1.5 % (1.0-4.0); HEMATOCRIT 40.3 % (37.0-47.0); MEAN CELL VOLUME 94.4 fl (81.0-99.0); MEAN CORPUSCULAR HGB 30.4 pg (27.0-31.0); MEAN CORPUSCULAR HGB CONC 32.3 g/dl (33.0-37.0); MEAN PLATELET VOLUME 9.9 fl (9.6-12.3); MONO # 0.6 10*3/uL (0.1-1.0); MONO % 7.4 % (3.0-9.0); NEUT # 5.3 10*3/uL (2.3-7.9); NEUT % 70.9 % (47.0-73.0); PLATELET COUNT AUTOMATED 219 10*3/uL (130-400); RED BLOOD COUNT 4.27 10*6/uL (4.10-5.10); RED CELL DISTRI WIDTH 13.9 % (0-14.5); WHITE BLOOD COUNT 7.5 10*3/uL (4.8-10.8)
[2025-01-13 18:35] LABS: BUN 20 mg/dl (9-23); CHLORIDE 106 mmol/L (98-107); POTASSIUM 3.9 mmol/L (3.4-5.1)
[2025-01-13 18:50] VITALS: BP 155/71
[2025-01-13 19:02] LABS: ETHYL ALCOHOL < 3.0 mg/dl (<3)
[2025-01-13 19:11] VITALS: BP 162/87
[2025-01-13 20:09] LABS: BILIRUBIN Negative (Negative); BLOOD Negative (Negative); CLARITY Clear (Clear); COLOR Yellow (Yellow); GLUCOSE Negative (Negative); KETONE Negative (Negative); LEUKO ESTERASE 2+ (Negative); NITRITE Negative (Negative); PH 6.5 (4.5-8.0); SPECIFIC GRAVITY <= 1.005 (1.001-1.030); UROBILINOGEN 0.2 E.U./dl (0.0-1.0)
[2025-01-13 20:26] LABS: URINE AMPHETAMINES Negative (1000ng/ml); URINE BARBITURATES Negative (200ng/ml); URINE BENZODIAZEPINES Negative (200ng/ml); URINE CANNABINOIDS (THC) Negative (50ng/ml); URINE COCAINE Negative (300ng/ml); URINE METHADONE Negative (300ng/ml); URINE OPIATES Negative (300ng/ml); URINE PHENCYCLIDINE Negative (25ng/ml)
[2025-01-13 20:38] LABS: BACTERIA 1+; EPITHELIAL CELLS 51-100
[2025-01-14] MEDS ORDERED: Magnesium Hydroxide 30 ML UDC PO PRN (01:45)
[2025-01-14] MEDS ORDERED: MG-AL HYDROXIDE/SIMETICONE 30 ML UDC PO PRN (01:45)
[2025-01-14] MEDS ORDERED: ACETAMINOPHEN 325 MG TAB PO PRN (01:45)
[2025-01-14] MEDS ORDERED: Menthol/Zinc Oxide 4 GM THIN T PRN (01:50)
[2025-01-14] MEDS ORDERED: Ziprasidone Mesylate 20 MG VIAL IM PRN (01:55)
[2025-01-14] MEDS ORDERED: hydrOXYzine hydrochloride 50 MG/ML VIAL IM PRN (01:55)
[2025-01-14] MEDS ORDERED: LORazepam 1 MG TAB PO PRN (01:55)
[2025-01-14 02:21] VITALS: BP 167/70
[2025-01-14] MEDS ORDERED: [UNRECOGNIZED DRUG - OTHER] SQ (03:56)
[2025-01-14] MEDS ORDERED: Fosfomycin Tromethamine 3 GM PDS PO ONE (04:20)
[2025-01-14] MEDS ORDERED: Levothyroxine Sodium 75 MCG TAB PO SCH (06:00)
[2025-01-14 07:26] LABS: CHOLESTEROL 204 mg/dL (<200); LDL CHOLESTEROL 117 mg/dL (9-159); TRIGLYCERIDES 73 mg/dl (<150)
[2025-01-14 07:35] LABS: VITAMIN D, 25-HYDROXY 36.3 ng/mL (30-100)
[2025-01-14 07:49] LABS: VALPROIC ACID (DEPAKENE) < 3.0 ug/ml (50-100)
[2025-01-14 08:36] VITALS: BP 152/80
[2025-01-14] MEDS ORDERED: DIVALPROEX (DR) 500 MG TAB PO SCH (09:00)
[2025-01-14] MEDS ORDERED: Memantine Hydrochloride 10 MG TAB PO SCH (09:00)
[2025-01-14] MEDS ORDERED: RIVASTIGMINE 13.3 MG/24 HR TDM T SCH (09:00)
[2025-01-14] MEDS ORDERED: CYANOCOBALAMIN 500 MCG TAB PO SCH (09:00)
[2025-01-14] MEDS ORDERED: NICOTINE POLACRILEX 4 MG GUM PO PRN (14:50)
[2025-01-14] MEDS ORDERED: Albuterol Sulf/Ipratropium 3 ML VIAL NEB SCH (15:13)
[2025-01-14 19:16] VITALS: BP 153/87
[2025-01-14] MEDS ORDERED: Doxycycline Hyclate 100 MG TAB PO SCH (21:00)
[2025-01-15 07:56] VITALS: BP 152/83
[2025-01-15] MEDS ORDERED: Albuterol Sulf/Ipratropium 3 ML VIAL NEB PRN (08:45)
[2025-01-15] MEDS ORDERED: Nicotine 14 MG PATCH T SCH (09:00)
[2025-01-15] MEDS ORDERED: hydrOXYzine pamoate 25 MG CAP PO SCH (13:00)
[2025-01-15 20:00] VITALS: BP 152/76
[2025-01-16 07:53] VITALS: BP 139/86
[2025-01-16 20:00] VITALS: BP 152/74
[2025-01-17 08:00] VITALS: BP 108/89
[2025-01-17] MEDS ORDERED: Glycerin/Hypromellose/Polyet 300 DRP BOT OPH PRN (12:20)
[2025-01-17 20:00] VITALS: BP 139/70
[2025-01-17] MEDS ORDERED: DULoxetine Hydrochloride 30 MG CAP PO SCH (21:00)
[2025-01-17] MEDS ORDERED: PALIPERIDONE 1.5 MG PO SCH (21:00)
[2025-01-18 08:00] VITALS: BP 146/72
[2025-01-18 14:06] LABS: BILIRUBIN Negative (Negative); BLOOD Negative (Negative); CLARITY Clear (Clear); COLOR Yellow (Yellow); GLUCOSE Negative (Negative); KETONE Negative (Negative); LEUKO ESTERASE Trace (Negative); NITRITE Negative (Negative); SPECIFIC GRAVITY <= 1.005 (1.001-1.030); UROBILINOGEN 0.2 E.U./dl (0.0-1.0)
[2025-01-18 14:27] LABS: BACTERIA 1+
[2025-01-18 20:00] VITALS: BP 152/62
[2025-01-19 06:26] LABS: HEMATOCRIT 37.4 % (37.0-47.0); MEAN CELL VOLUME 96.4 fl (81.0-99.0); MEAN CORPUSCULAR HGB 31.2 pg (27.0-31.0); MEAN CORPUSCULAR HGB CONC 32.4 g/dl (33.0-37.0); MEAN PLATELET VOLUME 10.5 fl (9.6-12.3); PLATELET COUNT AUTOMATED 235 10*3/uL (130-400); RED BLOOD COUNT 3.88 10*6/uL (4.10-5.10); RED CELL DISTRI WIDTH 13.6 % (0-14.5); WHITE BLOOD COUNT 6.9 10*3/uL (4.8-10.8)
[2025-01-19 07:08] LABS: MANUAL DIFF REFLEX YES
[2025-01-19 07:10] LABS: PLATELET SUFFICIENCY NORMAL (NORMAL); TOTAL CELLS COUNTED 100 #CELLS
[2025-01-19 07:13] LABS: POTASSIUM 4.6 mmol/L (3.4-5.1); TOTAL PROTEIN 6.3 gm/dL (6.0-8.0)
[2025-01-19 08:00] VITALS: BP 144/58
[2025-01-19 20:00] VITALS: BP 133/61
[2025-01-20 08:00] VITALS: BP 130/59
[2025-01-20 20:00] VITALS: BP 154/65
[2025-01-21 08:00] VITALS: BP 123/81
[2025-01-21] MEDS ORDERED: DULOXETINE HCL30 MG PO (10:11)
[2025-01-21] MEDS ORDERED: MEMANTINE HCL10 MG PO (10:11)
[2025-01-21] MEDS ORDERED: HYDROXYZINE PAM25 M1 PO (10:11)
[2025-01-21] MEDS ORDERED: PALIPERIDONE E1.5 MG PO (10:11)
[2025-01-21 10:26] LABS: POTASSIUM 4.5 mmol/L (3.4-5.1); TOTAL PROTEIN 6.3 gm/dL (6.0-8.0)
== END 2025-01-21 19:30 | disposition home or self-care (01) | DRG 885 ==
LOC: ED 17:44 → 3N 01-14 01:16
PROVIDERS: Counselor Professional; Emergency Medicine; Registered Nurse; ADMIT Psychiatry & Neurology Psychiatry; ATTEND Psychiatry & Neurology Psychiatry
PROC: GZHZZZZ Group Psychotherapy (ICD-10-PCS; principal; 2025-01-14)
PROC: GZ51ZZZ Individual Psychotherapy, Behavioral (ICD-10-PCS; 2025-01-14)
DX: F25.9 Schizoaffective disorder, unspecified (principal); N18.32 Chronic kidney disease, stage 3b; N30.00 Acute cystitis without hematuria; J44.1 Chronic obstructive pulmonary disease with (acute) exacerbation; F91.9 Conduct disorder, unspecified; F31.9 Bipolar disorder, unspecified; F17.210 Nicotine dependence, cigarettes, uncomplicated; E03.9 Hypothyroidism, unspecified; Z20.822 Contact with and (suspected) exposure to COVID-19; I10 Essential (primary) hypertension; I12.9 Hypertensive chronic kidney disease with stage 1 through stage 4 chronic kidney disease, or unspecified chronic kidney disease; R56.9 Unspecified convulsions; E78.5 Hyperlipidemia, unspecified; Z88.8 Allergy status to other drugs, medicaments and biological substances

== ENCOUNTER 2025-03-11 17:13 | Inpatient (IN) | payer MEDICARE ==
[~2025-03-11] VITALS: Ht 154.9 cm; Wt 71.0 kg
[~2025-03-11 17:13] MED LIST changes: +DULOXETINE HCL30 MG PO; +HYDROXYZINE PAM25 M1 PO; +PALIPERIDONE E1.5 MG PO; +[UNRECOGNIZED DRUG - OTHER] SQ
[2025-03-11 17:23] VITALS: BP 184/90
[2025-03-11] MEDS ORDERED: RISPERDAL1 M1 PO (17:29)
[2025-03-11 17:50] LABS: BILIRUBIN Negative (Negative); BLOOD Negative (Negative); CLARITY Cloudy (Clear); COLOR Yellow (Yellow); GLUCOSE Negative (Negative); KETONE Negative (Negative); LEUKO ESTERASE 2+ (Negative); NITRITE Negative (Negative); SPECIFIC GRAVITY <= 1.005 (1.001-1.030); UROBILINOGEN 0.2 E.U./dl (0.0-1.0)
[2025-03-11 17:54] LABS: BASO # 0.1 10*3/uL (0.0-0.1); BASO % 0.5 % (0.0-1.0); EOS # 0.2 10*3/uL (0.0-0.4); EOS % 1.9 % (1.0-4.0); HEMATOCRIT 42.4 % (37.0-47.0); MEAN CORPUSCULAR HGB 29.5 pg (27.0-31.0); MEAN CORPUSCULAR HGB CONC 32.8 g/dl (33.0-37.0); MEAN PLATELET VOLUME 9.6 fl (9.6-12.3); MONO # 0.7 10*3/uL (0.1-1.0); MONO % 6.8 % (3.0-9.0); NEUT # 7.4 10*3/uL (2.3-7.9); NEUT % 72.3 % (47.0-73.0); PLATELET COUNT AUTOMATED 318 10*3/uL (130-400); RED BLOOD COUNT 4.71 10*6/uL (4.10-5.10); RED CELL DISTRI WIDTH 13.8 % (0-14.5); WHITE BLOOD COUNT 10.2 10*3/uL (4.8-10.8)
[2025-03-11 17:57] LABS: URINE AMPHETAMINES Negative (1000ng/ml); URINE BARBITURATES Negative (200ng/ml); URINE BENZODIAZEPINES Negative (200ng/ml); URINE CANNABINOIDS (THC) Negative (50ng/ml); URINE COCAINE Negative (300ng/ml); URINE METHADONE Negative (300ng/ml); URINE OPIATES Negative (300ng/ml); URINE PHENCYCLIDINE Negative (25ng/ml)
[2025-03-11 18:22] LABS: BACTERIA 1+; EPITHELIAL CELLS 21-30; MUCOUS 1+; RBC 0-2 rbc/hpf (0-2); WBC 16-20 wbc/hpf (0-5)
[2025-03-11 18:22] LABS: BUN 18 mg/dl (9-23); CHLORIDE 106 mmol/L (98-107); POTASSIUM 4.2 mmol/L (3.4-5.1)
[2025-03-11 18:35] LABS: ETHYL ALCOHOL < 3.0 mg/dl (<3)
[2025-03-11] MEDS ORDERED: LORazepam 1 MG TAB PO PRN (21:10)
[2025-03-11] MEDS ORDERED: Ziprasidone Mesylate 20 MG VIAL IM PRN (21:10)
[2025-03-11] MEDS ORDERED: hydrOXYzine hydrochloride 50 MG/ML VIAL IM PRN (21:15)
[2025-03-11] MEDS ORDERED: Water, Sterile 10 ML VIAL IM PRN (21:15)
[2025-03-11] MEDS ORDERED: hydrOXYzine pamoate 25 MG CAP PO PRN (21:15)
[2025-03-11] MEDS ORDERED: ACETAMINOPHEN 325 MG TAB PO PRN (21:35)
[2025-03-11] MEDS ORDERED: Magnesium Hydroxide 30 ML UDC PO PRN (21:35)
[2025-03-11] MEDS ORDERED: MG-AL HYDROXIDE/SIMETICONE 30 ML UDC PO PRN (21:35)
[2025-03-11] MEDS ORDERED: Menthol/Zinc Oxide 4 GM THIN T PRN (21:45)
[2025-03-11 22:01] VITALS: BP 147/60
[2025-03-11] MEDS ORDERED: SODIUM CHLORIDE 0.9% 1,000 ML IV ONE (22:15)
[2025-03-12 06:29] LABS: BASO # 0.1 10*3/uL (0.0-0.1); BASO % 0.5 % (0.0-1.0); EOS # 0.2 10*3/uL (0.0-0.4); EOS % 2.4 % (1.0-4.0); HEMATOCRIT 39.8 % (37.0-47.0); MEAN CELL VOLUME 92.6 fl (81.0-99.0); MEAN CORPUSCULAR HGB CONC 32.4 g/dl (33.0-37.0); MEAN PLATELET VOLUME 9.7 fl (9.6-12.3); MONO # 0.7 10*3/uL (0.1-1.0); MONO % 7.3 % (3.0-9.0); NEUT # 6.6 10*3/uL (2.3-7.9); NEUT % 66.2 % (47.0-73.0); PLATELET COUNT AUTOMATED 303 10*3/uL (130-400); RED CELL DISTRI WIDTH 13.8 % (0-14.5); WHITE BLOOD COUNT 9.9 10*3/uL (4.8-10.8)
[2025-03-12 06:40] LABS: POTASSIUM 4.4 mmol/L (3.4-5.1)
[2025-03-12 07:43] LABS: VITAMIN D, 25-HYDROXY 37.4 ng/mL (30-100)
[2025-03-12 08:00] VITALS: BP 153/72
[2025-03-12] MEDS ORDERED: CEPHALEXIN 500 MG CAP PO SCH (09:00)
[2025-03-12] MEDS ORDERED: Nicotine 21 MG PATCH T SCH (09:00)
[2025-03-12] MEDS ORDERED: hydrOXYzine pamoate 25 MG CAP PO SCH (09:00)
[2025-03-12] MEDS ORDERED: Memantine Hydrochloride 10 MG TAB PO SCH (09:00)
[2025-03-12] MEDS ORDERED: CYANOCOBALAMIN 1,000 MCG/ML VIAL IM SCH (09:35)
[2025-03-12] MEDS ORDERED: Glycerin/Hypromellose/Polyet 300 DRP BOT OPH PRN (15:30)
[2025-03-12 20:00] VITALS: BP 174/74
[2025-03-12] MEDS ORDERED: DULoxetine Hydrochloride 60 MG CAP PO SCH (21:00)
[2025-03-12] MEDS ORDERED: LURASIDONE HYDROCHLORIDE 40 MG TAB PO SCH (21:00)
[2025-03-12] MEDS ORDERED: risperiDONE 1 MG TAB PO SCH (21:00)
[2025-03-12] MEDS ORDERED: Rivastigmine Tartrate 1.5 MG CAP PO SCH (21:00)
[2025-03-13] MEDS ORDERED: hydrOXYzine hydrochloride 50 MG/ML VIAL IM PRN (04:30)
[2025-03-13] MEDS ORDERED: LORazepam 1 MG TAB PO PRN (04:35)
[2025-03-13] MEDS ORDERED: Ziprasidone Mesylate 20 MG VIAL IM PRN (04:35)
[2025-03-13] MEDS ORDERED: SODIUM CHLORIDE 0.9% 10 ML VIAL IM PRN (04:35)
[2025-03-13 07:41] VITALS: BP 167/74
[2025-03-13 20:00] VITALS: BP 153/82
[2025-03-14 08:35] VITALS: BP 139/58
[2025-03-14] MEDS ORDERED: amLODIPine besylate 5 MG TAB PO SCH (09:00)
[2025-03-14] MEDS ORDERED: DIVALPROEX (DR) 250 MG TAB PO SCH (11:00)
[2025-03-14 20:00] VITALS: BP 129/58
[2025-03-14] MEDS ORDERED: Rivastigmine Tartrate 3 MG CAP PO SCH (21:00)
[2025-03-15 07:47] VITALS: BP 149/42
[2025-03-15 08:56] LABS: BASO # 0.1 10*3/uL (0.0-0.1); BASO % 0.7 % (0.0-1.0); EOS # 0.3 10*3/uL (0.0-0.4); EOS % 4.3 % (1.0-4.0); HEMATOCRIT 43.6 % (37.0-47.0); MEAN CORPUSCULAR HGB 30.1 pg (27.0-31.0); MEAN CORPUSCULAR HGB CONC 32.3 g/dl (33.0-37.0); MEAN PLATELET VOLUME 9.6 fl (9.6-12.3); MONO # 0.5 10*3/uL (0.1-1.0); MONO % 6.7 % (3.0-9.0); NEUT # 4.7 10*3/uL (2.3-7.9); NEUT % 65.4 % (47.0-73.0); PLATELET COUNT AUTOMATED 277 10*3/uL (130-400); RED BLOOD COUNT 4.69 10*6/uL (4.10-5.10); RED CELL DISTRI WIDTH 13.6 % (0-14.5); WHITE BLOOD COUNT 7.1 10*3/uL (4.8-10.8)
[2025-03-15 09:20] LABS: POTASSIUM 4.8 mmol/L (3.4-5.1); TOTAL PROTEIN 7.2 gm/dL (6.0-8.0)
[2025-03-15] MEDS ORDERED: CYANOCOBALAMIN 1,000 MCG/ML VIAL IM SCH (11:55)
[2025-03-15 20:00] VITALS: BP 142/82
[2025-03-16 08:00] VITALS: BP 148/52
[2025-03-16] MEDS ORDERED: Rivastigmine Tartrate 1.5 MG CAP PO SCH (09:00)
[2025-03-16] MEDS ORDERED: DIVALPROEX SODIUM 125 MG TAB PO SCH (13:00)
[2025-03-16 20:00] VITALS: BP 130/58
[2025-03-17 07:32] VITALS: BP 136/64
[2025-03-17] MEDS ORDERED: risperiDONE 1 MG TAB PO SCH (09:15)
[2025-03-17 20:00] VITALS: BP 134/72
[2025-03-17] MEDS ORDERED: Rivastigmine Tartrate 3 MG CAP PO SCH (21:00)
[2025-03-17] MEDS ORDERED: risperiDONE 2 MG TAB PO SCH (21:00)
[2025-03-17] MEDS ORDERED: Dicyclomine Hydrochloride 20 MG/10 ML OSYR PO STA (23:53)
[2025-03-17] MEDS ORDERED: Pantoprazole Sodium 20 MG TAB PO ONE (23:55)
[2025-03-17] MEDS ORDERED: Ondansetron Hydrochloride 4 MG TAB PO PRN (23:55)
[2025-03-18 07:36] VITALS: BP 162/62
[2025-03-18 20:00] VITALS: BP 107/80
[2025-03-19 08:00] VITALS: BP 148/60
[2025-03-19 20:00] VITALS: BP 161/100
[2025-03-20 06:36] LABS: BASO % 0.5 % (0.0-1.0); EOS # 0.2 10*3/uL (0.0-0.4); EOS % 1.9 % (1.0-4.0); HEMATOCRIT 42.1 % (37.0-47.0); MEAN CORPUSCULAR HGB 29.5 pg (27.0-31.0); MEAN CORPUSCULAR HGB CONC 31.4 g/dl (33.0-37.0); MEAN PLATELET VOLUME 10.1 fl (9.6-12.3); MONO # 0.7 10*3/uL (0.1-1.0); MONO % 8.4 % (3.0-9.0); NEUT % 70.8 % (47.0-73.0); PLATELET COUNT AUTOMATED 226 10*3/uL (130-400); RED BLOOD COUNT 4.48 10*6/uL (4.10-5.10); RED CELL DISTRI WIDTH 13.6 % (0-14.5); WHITE BLOOD COUNT 8.5 10*3/uL (4.8-10.8)
[2025-03-20 06:37] LABS: TOTAL PROTEIN 6.8 gm/dL (6.0-8.0)
[2025-03-20 08:00] VITALS: BP 163/68
[2025-03-20 12:28] LABS: BILIRUBIN Negative (Negative); BLOOD Negative (Negative); CLARITY Clear (Clear); COLOR Yellow (Yellow); GLUCOSE Negative (Negative); KETONE Negative (Negative); LEUKO ESTERASE Negative (Negative); NITRITE Negative (Negative); UROBILINOGEN 0.2 E.U./dl (0.0-1.0)
[2025-03-20 13:08] LABS: RBC 0-2 rbc/hpf (0-2)
[2025-03-20 20:00] VITALS: BP 130/61
[2025-03-21 07:52] VITALS: BP 126/46
[2025-03-21 20:00] VITALS: BP 116/52
[2025-03-21] MEDS ORDERED: risperiDONE 1 MG TAB PO SCH (21:00)
[2025-03-22 06:46] LABS: POTASSIUM 4.6 mmol/L (3.4-5.1)
[2025-03-22 08:00] VITALS: BP 148/77
[2025-03-22] MEDS ORDERED: risperiDONE 0.5 MG TAB PO SCH (09:00)
[2025-03-22 20:00] VITALS: BP 124/62
[2025-03-23 08:00] VITALS: BP 98/46
[2025-03-23] MEDS ORDERED: BENZTROPINE MESYLATE 1 MG TAB PO SCH (09:15)
[2025-03-23 18:13] LABS: BASO % 0.4 % (0.0-1.0); EOS # 0.2 10*3/uL (0.0-0.4); EOS % 1.9 % (1.0-4.0); HEMATOCRIT 39.2 % (37.0-47.0); MEAN CELL VOLUME 95.1 fl (81.0-99.0); MEAN CORPUSCULAR HGB 31.1 pg (27.0-31.0); MEAN CORPUSCULAR HGB CONC 32.7 g/dl (33.0-37.0); MEAN PLATELET VOLUME 9.9 fl (9.6-12.3); MONO # 0.9 10*3/uL (0.1-1.0); MONO % 10.1 % (3.0-9.0); NEUT # 5.8 10*3/uL (2.3-7.9); NEUT % 69.5 % (47.0-73.0); PLATELET COUNT AUTOMATED 201 10*3/uL (130-400); RED BLOOD COUNT 4.12 10*6/uL (4.10-5.10); RED CELL DISTRI WIDTH 13.6 % (0-14.5); WHITE BLOOD COUNT 8.4 10*3/uL (4.8-10.8)
[2025-03-23 20:00] VITALS: BP 128/89
[2025-03-24 08:21] VITALS: BP 129/75
[2025-03-24] MEDS ORDERED: DIVALPROEX (DR) 250 MG TAB PO SCH (09:00)
[2025-03-24] MEDS ORDERED: VITAMIN E 400 IU CAP PO SCH (09:00)
[2025-03-24 20:00] VITALS: BP 119/65
[2025-03-25 08:00] VITALS: BP 135/54
[2025-03-25 20:00] VITALS: BP 122/68
[2025-03-26 08:53] VITALS: BP 124/63
[2025-03-26] MEDS ORDERED: risperiDONE 0.5 MG TAB PO SCH (12:00)
[2025-03-26 20:00] VITALS: BP 131/75
[2025-03-27 08:32] VITALS: BP 139/70
[2025-03-27 20:00] VITALS: BP 137/79
[2025-03-28 06:32] LABS: BASO % 0.5 % (0.0-1.0); EOS # 0.2 10*3/uL (0.0-0.4); EOS % 2.8 % (1.0-4.0); HEMATOCRIT 37.4 % (37.0-47.0); MEAN CELL VOLUME 92.1 fl (81.0-99.0); MEAN CORPUSCULAR HGB 30.3 pg (27.0-31.0); MEAN CORPUSCULAR HGB CONC 32.9 g/dl (33.0-37.0); MEAN PLATELET VOLUME 10.2 fl (9.6-12.3); MONO # 1.3 10*3/uL (0.1-1.0); MONO % 15.3 % (3.0-9.0); NEUT % 61.2 % (47.0-73.0); PLATELET COUNT AUTOMATED 171 10*3/uL (130-400); RED BLOOD COUNT 4.06 10*6/uL (4.10-5.10); RED CELL DISTRI WIDTH 13.9 % (0-14.5); WHITE BLOOD COUNT 8.2 10*3/uL (4.8-10.8)
[2025-03-28 07:11] LABS: POTASSIUM 4.7 mmol/L (3.4-5.1); TOTAL PROTEIN 6.4 gm/dL (6.0-8.0)
[2025-03-28 07:51] VITALS: BP 100/66
[2025-03-28 20:00] VITALS: BP 138/50
[2025-03-28] MEDS ORDERED: risperiDONE 2 MG TAB PO SCH (21:00)
[2025-03-29 08:00] VITALS: BP 143/73
[2025-03-29] MEDS ORDERED: CEPHALEXIN 250 MG CAP PO SCH (13:00)
[2025-03-29 20:00] VITALS: BP 134/60
[2025-03-29] MEDS ORDERED: DULoxetine Hydrochloride 30 MG CAP PO SCH (21:00)
[2025-03-30 08:00] VITALS: BP 131/70
[2025-03-30 20:00] VITALS: BP 123/50
[2025-03-31 08:22] VITALS: BP 145/75
[2025-04-01 07:01] LABS: BASO % 0.4 % (0.0-1.0); EOS # 0.3 10*3/uL (0.0-0.4); EOS % 3.2 % (1.0-4.0); HEMATOCRIT 34.9 % (37.0-47.0); MEAN CELL VOLUME 94.1 fl (81.0-99.0); MEAN CORPUSCULAR HGB 29.6 pg (27.0-31.0); MEAN CORPUSCULAR HGB CONC 31.5 g/dl (33.0-37.0); MEAN PLATELET VOLUME 10.1 fl (9.6-12.3); MONO # 1.2 10*3/uL (0.1-1.0); MONO % 14.8 % (3.0-9.0); NEUT # 4.5 10*3/uL (2.3-7.9); NEUT % 56.8 % (47.0-73.0); PLATELET COUNT AUTOMATED 184 10*3/uL (130-400); RED BLOOD COUNT 3.71 10*6/uL (4.10-5.10); RED CELL DISTRI WIDTH 14.1 % (0-14.5); WHITE BLOOD COUNT 7.9 10*3/uL (4.8-10.8)
[2025-04-01 07:39] LABS: ALKALINE PHOSPHATASE 101 U/L (46-116); BUN 24 mg/dl (9-23); CHLORIDE 104 mmol/L (98-107); POTASSIUM 4.5 mmol/L (3.4-5.1); TOTAL PROTEIN 5.6 gm/dL (6.0-8.0); VALPROIC ACID (DEPAKENE) 49.6 ug/ml (50-100)
[2025-04-01 07:46] LABS: SGPT/ALT < 7 U/L (5-49)
[2025-04-01 08:00] VITALS: BP 128/48
[2025-04-01 20:00] VITALS: BP 114/89
[2025-04-02 08:00] VITALS: BP 115/52
[2025-04-02] MEDS ORDERED: Ondansetron4 MG PO (12:15)
[2025-04-02] MEDS ORDERED: B121000 MCG/1 IM (12:15)
[2025-04-02] MEDS ORDERED: VITAMIN E180 M1 PO (12:15)
[2025-04-02 20:00] VITALS: BP 130/74
[2025-04-03 08:17] VITALS: BP 122/82
[2025-04-03] MEDS ORDERED: RISPERIDONE2 M2 PO (08:22)
[2025-04-03] MEDS ORDERED: BENZTROPINE MESY1 MG PO (08:22)
[2025-04-03] MEDS ORDERED: DIVALPROEX SOD250 MG PO (08:22)
[2025-04-03] MEDS ORDERED: RIVASTIGMINE TAR3 M1 PO (08:22)
[2025-04-03] MEDS ORDERED: RISPERIDONE0.5 MG PO ×2 (08:22)
== END 2025-04-03 10:35 | DRG 885 ==
LOC: ED 17:13 → 3N 18:50
PROVIDERS: Counselor Professional; Emergency Medicine; Nurse Practitioner Women's Health; Registered Nurse; ADMIT Psychiatry & Neurology Psychiatry; ATTEND Psychiatry & Neurology Psychiatry
PROC: GZHZZZZ Group Psychotherapy (ICD-10-PCS; principal; 2025-03-12)
PROC: GZ51ZZZ Individual Psychotherapy, Behavioral (ICD-10-PCS; 2025-03-12)
PROC: 0HBRXZZ Excision of Toe Nail, External Approach (ICD-10-PCS; 2025-03-24)
PROC: 0HBRXZZ Excision of Toe Nail, External Approach (ICD-10-PCS; 2025-03-24)
PROC: 0HBRXZZ Excision of Toe Nail, External Approach (ICD-10-PCS; 2025-03-24)
PROC: 0HBRXZZ Excision of Toe Nail, External Approach (ICD-10-PCS; 2025-03-24)
PROC: 0HBRXZZ Excision of Toe Nail, External Approach (ICD-10-PCS; 2025-03-24)
PROC: 0HBRXZZ Excision of Toe Nail, External Approach (ICD-10-PCS; 2025-03-24)
PROC: 0HBRXZZ Excision of Toe Nail, External Approach (ICD-10-PCS; 2025-03-24)
PROC: 0HBRXZZ Excision of Toe Nail, External Approach (ICD-10-PCS; 2025-03-24)
PROC: 0HBRXZZ Excision of Toe Nail, External Approach (ICD-10-PCS; 2025-03-24)
PROC: 0HBRXZZ Excision of Toe Nail, External Approach (ICD-10-PCS; 2025-03-24)
DX: F25.0 Schizoaffective disorder, bipolar type (principal); N18.32 Chronic kidney disease, stage 3b; N17.0 Acute kidney failure with tubular necrosis; F02.818 Dementia in other diseases classified elsewhere, unspecified severity, with other behavioral disturbance; L03.115 Cellulitis of right lower limb; E03.9 Hypothyroidism, unspecified; J44.9 Chronic obstructive pulmonary disease, unspecified; R73.9 Hyperglycemia, unspecified; F91.9 Conduct disorder, unspecified; E55.9 Vitamin D deficiency, unspecified; E78.2 Mixed hyperlipidemia; L60.3 Nail dystrophy; B35.1 Tinea unguium; R56.9 Unspecified convulsions; F32.9 Major depressive disorder, single episode, unspecified; I12.9 Hypertensive chronic kidney disease with stage 1 through stage 4 chronic kidney disease, or unspecified chronic kidney disease; F17.210 Nicotine dependence, cigarettes, uncomplicated; G30.9 Alzheimer's disease, unspecified; Z88.8 Allergy status to other drugs, medicaments and biological substances; Z79.899 Other long term (current) drug therapy; S92.424A Nondisplaced fracture of distal phalanx of right great toe, initial encounter for closed fracture; X58.XXXA Exposure to other specified factors, initial encounter; Y93.89 Activity, other specified; Y92.238 Other place in hospital as the place of occurrence of the external cause; Y99.8 Other external cause status

== ENCOUNTER 2025-06-24 14:04 | Emergency (ER) | payer MEDICARE ==
[~2025-06-24] VITALS: Ht 154.9 cm; Wt 84.0 kg
[~2025-06-24 14:04] MED LIST changes: +B121000 MCG/1 IM; +BENZTROPINE MESY1 MG PO; +Ondansetron4 MG PO; +RIVASTIGMINE TAR3 M1 PO; +VITAMIN E180 M1 PO
[2025-06-24] MEDS ORDERED: NORVASC5 MG PO (14:17)
[2025-06-24 14:18] LABS: BASO # 0.0 10*3/uL (0.0-0.1); BASO % 0.4 % (0.0-1.0); EOS # 0.2 10*3/uL (0.0-0.4); EOS % 2.7 % (1.0-4.0); MEAN CELL VOLUME 94.0 fl (81.0-99.0); MEAN CORPUSCULAR HGB 30.1 pg (27.0-31.0); MEAN PLATELET VOLUME 9.9 fl (9.6-12.3); MONO # 0.6 10*3/uL (0.1-1.0); MONO % 8.6 % (3.0-9.0); NEUT # 4.7 10*3/uL (2.3-7.9); NEUT % 63.8 % (47.0-73.0); NUCLEATED RED BLOOD CELL 0.0 % (0.0-0.0); NUCLEATED RED BLOOD CELL 0.0 10*3/uL (0.0-0.0); PLATELET COUNT AUTOMATED 172 10*3/uL (130-400); RED CELL DISTRI WIDTH 15.0 % (0-14.5)
[2025-06-24] MEDS ORDERED: TYLENOL325 M2 PO ×2 (14:19)
[2025-06-24 14:38] LABS: BUN 21.0 mg/dl (9-23)
[2025-06-24 14:46] LABS: BILIRUBIN Negative (Negative); BLOOD Negative (Negative); CLARITY Clear (Clear); COLOR Yellow (Yellow); KETONE Negative (Negative); LEUKO ESTERASE 2+ (Negative); NITRITE Negative (Negative); PH 6.0 (4.5-8.0); SPECIFIC GRAVITY <= 1.005 (1.001-1.030); UROBILINOGEN 0.2 E.U./dl (0.0-1.0)
[2025-06-24 14:57] LABS: BACTERIA TRACE; WBC 21-30 wbc/hpf (0-5)
== END 2025-06-24 15:50 | disposition home or self-care (01) ==
LOC: ED 14:04
PROVIDERS: Internal Medicine
DX: Z00.00 Encounter for general adult medical examination without abnormal findings (principal); F17.200 Nicotine dependence, unspecified, uncomplicated; E03.9 Hypothyroidism, unspecified; N18.9 Chronic kidney disease, unspecified; F31.9 Bipolar disorder, unspecified; F25.9 Schizoaffective disorder, unspecified; E78.00 Pure hypercholesterolemia, unspecified; Z90.89 Acquired absence of other organs; Z88.8 Allergy status to other drugs, medicaments and biological substances

== ENCOUNTER 2025-06-25 08:25 | Inpatient (IN) | payer MEDICARE ==
[~2025-06-25] VITALS: Ht 157.4 cm; Wt 78.6 kg
[~2025-06-25 08:25] MED LIST changes: +NORVASC5 MG PO; +TYLENOL325 M2 PO
[2025-06-25] MEDS ORDERED: LORazepam 1 MG TAB PO ONE ×2 (08:30→08:50)
[2025-06-25 08:34] VITALS: BP 165/73
[2025-06-25 08:43] LABS: BASO # 0.0 10*3/uL (0.0-0.1); BASO % 0.4 % (0.0-1.0); EOS # 0.3 10*3/uL (0.0-0.4); EOS % 3.6 % (1.0-4.0); MEAN CELL VOLUME 95.1 fl (81.0-99.0); MEAN CORPUSCULAR HGB 30.1 pg (27.0-31.0); MEAN PLATELET VOLUME 9.8 fl (9.6-12.3); MONO # 0.8 10*3/uL (0.1-1.0); MONO % 10.2 % (3.0-9.0); NEUT # 5.0 10*3/uL (2.3-7.9); NEUT % 64.3 % (47.0-73.0); NUCLEATED RED BLOOD CELL 0.0 % (0.0-0.0); NUCLEATED RED BLOOD CELL 0.0 10*3/uL (0.0-0.0); PLATELET COUNT AUTOMATED 168 10*3/uL (130-400); RED CELL DISTRI WIDTH 15.4 % (0-14.5)
[2025-06-25 09:11] LABS: BUN 18.0 mg/dl (9-23)
[2025-06-25 09:32] LABS: ACT PARTIAL THROMBO TIME 29.5 SECONDS (20.0-32.1)
[2025-06-25 09:41] LABS: CPK 119.0 U/L (34-171)
[2025-06-25 11:18] LABS: BILIRUBIN Negative (Negative); BLOOD Negative (Negative); CLARITY Clear (Clear); COLOR Yellow (Yellow); KETONE Negative (Negative); LEUKO ESTERASE Negative (Negative); NITRITE Negative (Negative); PH 7.0 (4.5-8.0); SPECIFIC GRAVITY <= 1.005 (1.001-1.030); UROBILINOGEN 0.2 E.U./dl (0.0-1.0)
[2025-06-25 11:27] LABS: URINE AMPHETAMINES Negative (1000ng/ml); URINE BARBITURATES Negative (200ng/ml); URINE BENZODIAZEPINES Negative (200ng/ml); URINE CANNABINOIDS (THC) Negative (50ng/ml); URINE COCAINE Negative (300ng/ml); URINE METHADONE Negative (300ng/ml); URINE OPIATES Negative (300ng/ml); URINE PHENCYCLIDINE Negative (25ng/ml)
[2025-06-25 11:28] LABS: BACTERIA TRACE; EPITHELIAL CELLS 0-2; RBC 0-2 rbc/hpf (0-2); WBC 0-2 wbc/hpf (0-5)
[2025-06-25 12:41] VITALS: BP 166/79
[2025-06-25] MEDS ORDERED: Ondansetron Hydrochloride 4 MG TAB PO PRN (13:05)
[2025-06-25] MEDS ORDERED: ACETAMINOPHEN 325 MG TAB PO PRN (13:15)
[2025-06-25] MEDS ORDERED: MG-AL HYDROXIDE/SIMETICONE 30 ML UDC PO PRN (13:15)
[2025-06-25] MEDS ORDERED: Menthol/Zinc Oxide 4 GM THIN T PRN (13:20)
[2025-06-25] MEDS ORDERED: hydrOXYzine hydrochloride 50 MG/ML VIAL IM PRN (13:25)
[2025-06-25] MEDS ORDERED: Water, Sterile 10 ML VIAL IM PRN (13:25)
[2025-06-25] MEDS ORDERED: LORazepam 1 MG TAB PO PRN (13:25)
[2025-06-25 20:00] VITALS: BP 153/65
[2025-06-25] MEDS ORDERED: BENZTROPINE MESYLATE 0.5 MG TAB PO SCH (21:00)
[2025-06-25] MEDS ORDERED: DIVALPROEX ER 250 MG TAB PO SCH (21:00)
[2025-06-25] MEDS ORDERED: LURASIDONE HYDROCHLORIDE 40 MG TAB PO SCH (21:00)
[2025-06-26 07:14] LABS: BASO # 0.0 10*3/uL (0.0-0.1); BASO % 0.6 % (0.0-1.0); EOS # 0.4 10*3/uL (0.0-0.4); EOS % 5.2 % (1.0-4.0); MEAN CELL VOLUME 95.6 fl (81.0-99.0); MEAN CORPUSCULAR HGB 29.6 pg (27.0-31.0); MEAN PLATELET VOLUME 9.8 fl (9.6-12.3); MONO # 0.6 10*3/uL (0.1-1.0); MONO % 8.9 % (3.0-9.0); NEUT # 4.0 10*3/uL (2.3-7.9); NEUT % 57.9 % (47.0-73.0); NUCLEATED RED BLOOD CELL 0.0 % (0.0-0.0); NUCLEATED RED BLOOD CELL 0.0 10*3/uL (0.0-0.0); PLATELET COUNT AUTOMATED 203 10*3/uL (130-400); RED CELL DISTRI WIDTH 15.0 % (0-14.5)
[2025-06-26 07:42] LABS: BUN 18 mg/dl (9-23); LDL CHOLESTEROL 107 mg/dL (9-159)
[2025-06-26 08:00] VITALS: BP 151/64
[2025-06-26 08:06] LABS: VITAMIN D, 25-HYDROXY 45.7 ng/mL (30-100)
[2025-06-26 08:08] LABS: SGPT/ALT < 7 U/L (5-49)
[2025-06-26] MEDS ORDERED: VITAMIN E 400 IU CAP PO SCH (09:00)
[2025-06-26] MEDS ORDERED: NICOTINE POLACRILEX 4 MG GUM PO PRN (19:35)
[2025-06-26 20:00] VITALS: BP 134/100
[2025-06-27 07:58] VITALS: BP 145/77
[2025-06-27 20:00] VITALS: BP 130/73
[2025-06-27] MEDS ORDERED: LURASIDONE HYDROCHLORIDE 40 MG TAB PO SCH (21:00)
[2025-06-27] MEDS ORDERED: DIVALPROEX (DR) 500 MG TAB PO SCH (21:00)
[2025-06-28 07:58] VITALS: BP 126/92
[2025-06-28 20:00] VITALS: BP 139/96
[2025-06-29 08:22] VITALS: BP 147/90
[2025-06-29 20:40] VITALS: BP 147/78
[2025-06-29] MEDS ORDERED: DIVALPROEX SODIUM 125 MG CAP PO SCH (21:00)
[2025-06-30 08:00] VITALS: BP 148/66
[2025-06-30 08:06] LABS: BUN 28 mg/dl (9-23)
[2025-06-30 08:09] LABS: SGPT/ALT < 7 U/L (5-49)
[2025-06-30 20:00] VITALS: BP 140/54
[2025-07-01 06:23] LABS: BUN 29.0 mg/dl (9-23); SGPT/ALT 7.0 U/L (5-49); VALPROIC ACID (DEPAKENE) 68.0 ug/ml (50-100)
[2025-07-01 06:38] LABS: BASO # 0.1 10*3/uL (0.0-0.1); BASO % 0.8 % (0.0-1.0); EOS # 0.4 10*3/uL (0.0-0.4); EOS % 6.5 % (1.0-4.0); MEAN CELL VOLUME 96.5 fl (81.0-99.0); MEAN CORPUSCULAR HGB 29.8 pg (27.0-31.0); MEAN PLATELET VOLUME 10.1 fl (9.6-12.3); MONO # 0.7 10*3/uL (0.1-1.0); MONO % 11.2 % (3.0-9.0); NEUT # 3.4 10*3/uL (2.3-7.9); NEUT % 52.2 % (47.0-73.0); NUCLEATED RED BLOOD CELL 0.0 % (0.0-0.0); NUCLEATED RED BLOOD CELL 0.0 10*3/uL (0.0-0.0); PLATELET COUNT AUTOMATED 210 10*3/uL (130-400); RED CELL DISTRI WIDTH 15.3 % (0-14.5)
[2025-07-01 07:52] VITALS: BP 130/74
[2025-07-01 20:00] VITALS: BP 129/62
[2025-07-02] MEDS ORDERED: DEPAKOTE SPRIN125 MG PO (07:04)
[2025-07-02] MEDS ORDERED: LATU80TA PO (07:05)
[2025-07-02] MEDS ORDERED: B121000 MCG/2 IM (07:11)
[2025-07-02 08:00] VITALS: BP 147/67
[2025-07-02] MEDS ORDERED: MEMANTINE HCL10 MG PO (09:53)
[2025-07-02] MEDS ORDERED: RIVASTIGMINE TAR3 M1 PO (09:53)
[2025-07-02] MEDS ORDERED: DIVALPROEX SOD125 M1 PO (09:53)
[2025-07-02] MEDS ORDERED: BENZTROPINE ME0.5 MG PO (09:53)
[2025-07-02] MEDS ORDERED: LATU40TA PO (09:53)
[2025-07-02] MEDS ORDERED: VITAMIN E180 M1 PO (09:53)
== END 2025-07-02 19:02 | DRG 885 ==
LOC: ED 08:25 → 3N 11:54
PROVIDERS: Counselor Professional; Internal Medicine; Nurse Practitioner Women's Health; ADMIT Psychiatry & Neurology Psychiatry; ATTEND Psychiatry & Neurology Psychiatry
DX: F25.0 Schizoaffective disorder, bipolar type (principal); N18.32 Chronic kidney disease, stage 3b; E78.2 Mixed hyperlipidemia; G40.909 Epilepsy, unspecified, not intractable, without status epilepticus; E03.9 Hypothyroidism, unspecified; I12.9 Hypertensive chronic kidney disease with stage 1 through stage 4 chronic kidney disease, or unspecified chronic kidney disease; G30.1 Alzheimer's disease with late onset; F02.80 Dementia in other diseases classified elsewhere, unspecified severity, without behavioral disturbance, psychotic disturbance, mood disturbance, and anxiety; J44.9 Chronic obstructive pulmonary disease, unspecified; F41.1 Generalized anxiety disorder; F43.10 Post-traumatic stress disorder, unspecified; X58.XXXA Exposure to other specified factors, initial encounter; Y93.89 Activity, other specified; Y92.89 Other specified places as the place of occurrence of the external cause; Y99.8 Other external cause status; Z88.8 Allergy status to other drugs, medicaments and biological substances

== ENCOUNTER → 2025-09-16 | Outpatient (CLI) | payer MEDICARE ==
[~2025-09-16] MED LIST changes: +B121000 MCG/2 IM; +BENZTROPINE ME0.5 MG PO; +DEPAKOTE SPRIN125 MG PO; +LATU40TA PO; +LATU80TA PO
== END | disposition home or self-care (01) ==
LOC: MAMMO 09:23
PROVIDERS: ATTEND Internal Medicine
DX: Z12.31 Encounter for screening mammogram for malignant neoplasm of breast (principal)